=== PATIENT | male | born 1970 | race Caucasian/White ===

== ENCOUNTER 2024-05-14 13:05 | Outpatient (CLI) | payer BC, SELFPAY ==
--- NOTE | 2024-05-14 13:10 | US_ITS ---
FINAL REPORT CLINICAL HISTORY: CLAUDICATION,REST PAIN,DM,HLD,HTN FINDINGS: LOWER EXTREMITY SEGMENTAL PRESSURE MEASUREMENTS Pressure indices are as follows: RIGHT LOWER EXTREMITY: Lower thigh: 1.1 Calf: 1.0 Ankle, posterior tibial artery: 1.0 Ankle, dorsalis pedis: 1.0 Toe: 0.66 Comments: DANIEL is 1.0. LEFT LOWER EXTREMITY: Lower thigh: 0.91 Calf: 1.1 Ankle, posterior tibial artery: 1.0 Ankle, dorsalis pedis: 1.0 Toe: 0.52 Comments: DANIEL is 1.0 Reviewed, Interpreted and Dictated by Jordan Gentile MD Transcribed by Radha Lomas Authenticated and [facility]
== END 2024-05-14 23:59 | disposition home or self-care (01) ==
LOC: RT 13:06
PROVIDERS: PCP Registered Nurse; Visit Provider Registered Nurse
DX: R60.0 Localized edema (principal)
CPT/HCPCS: 93923

== ENCOUNTER 2024-08-01 15:06 | Outpatient (CLI) | payer BC, SELFPAY ==
--- NOTE | 2024-08-01 15:10 | CT_ITS ---
FINAL REPORT TECHNIQUE: Axial images of the chest was performed with and without contrast. Reformatted images were obtained and reviewed. This study was performed with techniques to keep radiation doses as low as reasonably achievable, (ALARA). Individualized dose reduction techniques using automated exposure control or adjustment of mA and/or kV according to the patient's size were employed. CLINICAL HISTORY: DYSPNEA FINDINGS: There is a opacified tubular structure in the right lower lobe. This is well-seen on coronal images 54-55 of series 601. This measures 31 x 15 mm. This could represent a dilated obstructed bronchus or less likely pulmonary nodule. There is partial right middle lobe collapse. There is a 3 mm left upper lobe nodule posteriorly on image 33 of series 2. Right hilar adenopathy is present with largest node measuring up to 22 mm. Limited images of the upper abdomen are unremarkable. IMPRESSION: Tubular structure in the right lower lobe which may represent an obstructed bronchus or bronchial atresia involving a segmental right lower lobe bronchus, pulmonary nodule is less likely. Right middle lobe partial collapse. Bronchoscopic evaluation should be considered. Reviewed, Interpreted and Dictated by Jordan Gentile MD Transcribed by Radha Lomas Authenticated and [facility]
[2024-08-01 15:44] LABS: Blood Urea Nitrogen 16 mg/dl (9-20); Estimated Glomerular Filt Rate 70 ml/min (>60); GFR (African American) 85 ML/MIN (>60)
[2024-08-01] MEDS: SODIUM CHLORIDE 0.9% 10ML SYR (RAD ONLY) 10 ML IV (16:15)
[2024-08-01] MEDS: IOPAMIDOL-370 (76%);100ML BOTTLE 75 ML IV (16:16)
== END 2024-08-01 23:59 | disposition home or self-care (01) ==
LOC: RAD 15:07
PROVIDERS: PCP Registered Nurse; Visit Provider Registered Nurse
DX: J98.11 Atelectasis (principal); R91.8 Other nonspecific abnormal finding of lung field
CPT/HCPCS: 36415; 71270; 82565; 84520; Q9967

== ENCOUNTER 2024-08-19 10:06 | Outpatient (CLI) | payer BC, SELFPAY ==
--- OUTSIDE RECORDS SUMMARY | 2024-07-03 07:30 | XMS_ITS ---
Author Organization [facility], [place], operated by [facility] Address [address] [place] [address] Care Team Providers Care Supervisor Grading Name Role Phone Martha Bermeo Primary Care Provider Jimmy RODRIGUEZ-Magnetic Prospecting Operator, Tarik Unavailable REASON FOR VISIT MAT Individual Counseling, Face to face encounter Medications Medication SIG (Take, Route, Frequency, Duration) Notes Start Date End Date Status Potassium 99 MG 1 tablet Orally Once a day for 30 days Active Mounjaro 5 MG/0.5ML inject 5 mg Subcutan eous once weekly for 28 days Active Lisinopril-hydroCHLOROthia zide 20-12.5 MG 1 tablet Orally Once a day for 90 days Active Ibuprofen 800 MG 1 tablet with food o r milk as needed Orally every 12 hrs for 30 days Active OXcarbazepine 150 MG 1 tablet Orally Twi ce a day for 30 days 06/05/2024 07/05/2024 Active Buprenorphine HCl-Naloxone HCl 8-2 MG 2 tablets under the tongue and allow to dissolve Sublingual Once a day for 28 days 06/05/2024 Active Encounters Encounter Location Date Provider Diagnosis [facility] [address] [facility] [address] [place] [id number] 07/03/2024 Tarik Marquez LPC-Magnetic Prospecting Operator Opioid dependence F11.20 Assessments Encounter Date Diagnosis (ICD Code) Assessment Notes Treatment Notes Treatment Clinical Notes Section Notes 07/03/2024 Opioid dependence (ICD-10 - F11.20) Gama will continue to participate in [facility] MAT program for ongoing support and maintenance in his recovery. Therapist and Gama will work collaboratively to explore and address any emerging maladaptive thoughts or behaviors related to substance use and adjustment to recent life changes, including his medical diagnosis and inability to work. Therapist will continue to provide education, encouragement, and therapeutic support, with a focus on reinforcing healthy coping strategies, maintaining recovery stability, and promoting emotional resilience during this period of health-related transition. In today's therapy session, Gama shared he experienced health issues in January, which led to medical testing and a diagnosis of black lung. His doctor has taken him off work, which has been emotionally challenging given his strong work history and identity tied to employment. Despite this, Gama reported he is doing well in his recovery. Therapist helped Gama identify and challenge negative automatic thoughts related to self-worth and productivity, emphasizing recovery and health management are forms of meaningful work. Cognitive restructuring was used to reframe his current situation from a setback to an opportunity for healing and self-care. Therapist and Gama discussed developing a new routine that supports both Gama's physical health and emotional well-being, including scheduling pleasant activities and setting achievable goals outside of work. Gama was encouraged to acknowledge his resilience and to continue focusing on the progress he's made in recovery, recognizing that staying well is now a central part of his purpose. Plan Of Treatment Treatment Notes Assessment Notes Opioid dependence Gama will continue to participate in [facility] MAT program for ongoing support and maintenance in his recovery. Therapist and Gama will work collaboratively to explore and address any emerging maladaptive thoughts or behaviors related to substance use and adjustment to recent life changes, including his medical diagnosis and inability to work. Therapist will continue to provide education, encouragement, and therapeutic support, with a focus on reinforcing healthy coping strategies, maintaining recovery stability, and promoting emotional resilience during this period of health-related transition. Next Appt Details Follow Up: 3 Months, Reason: Provider Name:Inessa Ruiz, 08/29/2024 11:30:00 AM, [address] [place] [address] [place], [id number], Provider Name:Tarik Marquez LPC-Magnetic Prospecting Operator, 09/26/2024 11:30:00 AM, [address] [place] [address] [place], [id number], Provider Name:Martha Bermeo , 09/26/2024 11:30:00 AM, [address] [facility] [place], [phone], Progress Notes * Miky BOGGSOB:1969 (54 yo M)Acc No.[id number]:07/03/2024 MAT-Individual Patient: Gama MILES Provider: Analisa Marquez LPC :1970 A ge:54 Y S ex:Male Date:07/03/2024 Address:[place] [address], [place], [id number] Pcp:Martha Bermeo Subjective: * Chief Complaints: * 1 . MAT Individual Counseling. 2. Face to face encounter. * HPI: I ndividual Counseling: Start Time: 11:36 am End Time: 12:15 pm Patient stated, I was having issues in January with dizziness and some other symptoms. My family doctor sent me for testing, and I found out I have black lung. She took me off work. It's been difficult not working, but I'm doing well with my recovery. . * Medical History: * Medications: T aking Buprenorphine HCl-Naloxone HCl 8-2 MG Tablet Sublingual 2 tablets under the tongue and allow to dissolve Sublingual Once a day , Taking Ibuprofen 800 MG Tablet 1 tablet with food or milk as needed Orally every 12 hrs , Taking Lisinopril-hydroCHLOROthiazide 20-12.5 MG Tablet 1 tablet Orally Once a day , Taking Mounjaro(Tirzepatide) 5 MG/0.5ML Solution Pen-injector inject 5 mg Subcutaneous once weekly , Taking OXcarbazepine 150 MG Tablet 1 tablet Orally Twice a day , stop date 07/05/2024, Taking Potassium 99 MG Tablet 1 tablet Orally Once a day Objective: * Vitals: * Examination: I ndividual Counseling: O (objective) P resents alone. Appearance C lean & lawyer probate, Casually Dressed, Good Hygiene, appropriate for weather/situation. Manner and/or Approach C ooperative. Speech N ormal/Appropriate. Orientation O riented x4. Mood P leasant, Appropriate to situation. Thought Process W ithin normal limits, Organized and coherent. Suicidal/Homicidal Ideation S I: not voiced/noted on this day, HI: not voiced/noted on this day. Affect c ongruent with stated mood. Grooming w ell groomed. Comprehension i ntact. Language i ntact. Eye Contact g ood. Aphasia N one noted. Suicidal Ideations d enies. Insight g ood. Judgement g ood. Recall g ood. Assessment: * Assessment: 1. O pioid dependence - F11.20 (Primary) In today's therapy session, Gama shared he experienced health issues in January, which led to medical testing and a diagnosis of black lung. His doctor has taken him off work, which has been emotionally challenging given his strong work history and identity tied to employment. Despite this, Gama reported he is doing well in his recovery. Therapist helped Gama identify and challenge negative automatic thoughts related to self-worth and productivity, emphasizing recovery and health management are forms of meaningful work. Cognitive restructuring was used to reframe his current situation from a setback to an opportunity for healing and self-care. Therapist and Gama discussed developing a new routine that supports both Gama's physical health and emotional well-being, including scheduling pleasant activities and setting achievable goals outside of work. Gama was encouraged to acknowledge his resilience and to continue focusing on the progress he's made in recovery, recognizing that staying well is now a central part of his purpose. Plan: * Treatment: * Procedure Codes: 9 0832 PSYTX PT&/FAMILY 30 MINUTES * Follow Up: 3 Months * Billing Information: * Visit Code: * Procedure Codes: 23315 PSYTX PT&/FAMILY 30 MINUTES. * Sign off status: Completed true * Provider: Analisa Marquez FLEXIBLE NANNY Date: 07/03/2024 Generated for Hanny sow/Liseth/Michelaitting on: 08/19/2024 10:09 AM EDT History and Physical Notes * Examination Category Sub-Category Detail Notes Category Not es Individual Counseling O (objective) Presents alone Appearance Clean & lawyer probate, Donavon ually Dressed, Good Hygiene, appropriate for weather/situation Manner and/or Approach Cooperative Speech Normal/Appropriate Orientation Oriented x4 Mood Pleasant, Appropriat e to situation Thought Process Within normal limits , Organized and coherent Suicidal/Homicidal Ideation SI: not voic ed/noted on this day, HI: not voiced/noted on this day Affect congruent with state d mood Grooming well groomed Comprehension intact Language intact Eye Contact good Aphasia None noted Suicidal Ideations denies Insight good Judgement good Recall good
--- OUTSIDE RECORDS SUMMARY | 2024-07-03 08:15 | XMS_ITS ---
Author Organization [facility] Address [address] [place] [address] Care Team Providers Care Landscape Manager Name Role Phone BermeoMartha Primary Care Provider [phone] Inessa Ruiz Unavailable [phone] Allergies No Known Allergies Results Component Value Reference Range Notes [facility] ( Not yet reviewed by provider) Interpretation: Performing Lab: Notes/Report: A-HYDROXYALPRAZOLAM NEGATIVE ACETYL FENTANYL NEGATIVE AMPHETAMINE NEGATIVE CODEINE NEGATIVE DEXTROMETHORPHAN POSITIVE GABAPENTIN NEGATIVE N-DESMETHYLTAPENTADOL NEGATIVE OXYCODONE NEGATIVE TAPENTADOL NEGATIVE TEMAZEPAM NEGATIVE PHENOBARBITAL NEGATIVE 6-MONOACETYLMORPHINE NEGATIVE 7-AMINOCLONAZEPAM NEGATIVE METHYLPHENIDATE NEGATIVE MORPHINE NEGATIVE NALOXONE POSITIVE NALTREXONE NEGATIVE NORBUPRENORPHINE POSITIVE NORDIAZEPAM NEGATIVE NORMEPERIDINE NEGATIVE OXAZEPAM NEGATIVE OXYMORPHONE NEGATIVE XYLAZINE NEGATIVE PHENTERMINE POSITIVE PREGABALIN NEGATIVE SUFENTANIL NEGATIVE THC-COOH NEGATIVE TRAMADOL NEGATIVE AMOBARBITAL NEGATIVE BUTALBITAL NEGATIVE SECOBARBITAL NEGATIVE ALPRAZOLAM NEGATIVE BENZOYLECGONINE NEGATIVE BUPRENORPHINE POSITIVE DIHYDROCODEINE NEGATIVE EDDP NEGATIVE FENTANYL NEGATIVE FLUNITRAZEPAM NEGATIVE HYDROCODONE NEGATIVE HYDROMORPHONE NEGATIVE LAMOTRIGINE NEGATIVE LORAZEPAM NEGATIVE MEPERIDINE NEGATIVE METHADONE NEGATIVE METHAMPHETAMINE NEGATIVE ETG POSITIVE ETS POSITIVE OXIDANTS DEFAULT PH NORMAL URINE CREATININE FALSE URINE SP. GRAVITY NORMAL NORFENTANYL NEGATIVE CLONAZEPAM NEGATIVE DIAZEPAM NEGATIVE REASON FOR VISIT MAT 1 month f/u substance abuse disorder., also follows for depression which is variable Medications Medication SIG (Take, Route, Frequency, Duration) Notes Start Date End Date Status Lisinopril-hydroCHLOROth iazide 20-12.5 MG 1 tablet Orally Once a day for 90 days Active Ibuprofen 800 MG 1 tablet with food o r milk as needed Orally every 12 hrs for 30 days Active Buprenorphine HCl-Naloxone HCl 8-2 MG 2 tablets under the tongue and allow to dissolve Sublingual Once a day for 28 days 07/03/2024 Active Potassium 99 MG 1 tablet Orally Once a day for 30 days Not-Taking OXcarbazepine 150 MG 1 tablet Orally Twi ce a day for 30 days 06/05/2024 07/05/2024 Active Mounjaro 5 MG/0.5ML inject 5 mg Subcutaneous once weekly for 28 days Active Social History Tobacco Use: Social History Observation Description Date Details (start date - stop date) Unknown Sexual History Question Answer Notes Had sex in the past 12 months (vaginal, oral, or anal)? Yes Have you ever had a Sexually transmitted disease ? No PRAPARE Question Answer Notes Date Completed/Updated: 07/03/2024 What is your current housing situation? I have h ousing Are you worried about losing your housing? No What is the highest level of school that you have finished? 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 Check all that apply I do not have problems meeting my needs Has lack of transportation k ept you from medical appointments, meetings, work or from getting things needed for daily living? No How often do you see or talk to people that you care about and feel close to? (For example: talking to friends on the phone, visiting friends or family, going to buddhist or club meetings) 3 to 5 times a week How stressed are you? Stress is when someone feels tense, nervous, anxious, or cant sleep at night because their mind is troubled Not at all In the past year have you sp ent more than 2 nights in a row in a correction, long term, mcfp center, or juvenile correctional facility? No Are you a refugee? No What country are you from? [place] Do you feel physically and e motionally safe where you currently live? Yes In the past year, have you b een afraid of your partner or ex-partner? No PRAPARE Score: 3 OPIOID Risk Tool (2018 Edition) Question Answer Notes Family Hx Alcohol? No Family Hx Illegal Drugs? No Family Hx Rx Drugs? No Personal Hx Alcohol? No Personal Hx Illegal Drugs? Yes Personal Hx Rx Drugs? Yes Age between 16-45 years? No History of Preadolescent Sexual Abuse? No ADD, OCD, Bipolar, Schizophrenia? No Depression? No TOTAL SCORE 9 Risk Level for Opioid Use high SBIRT (2018 Edition) Question Answer Notes Patient refused/declined SBIRT screening at this time? No 1. How often do you have a drink containing alco hol? Never 3. How often do you have five or more drinks on one occasion? Never SCORE 0 Interpretation Negative How many times in the past y ear have you used an illegal drug or used a prescription medication for non-medical reasons? 0 Total Count 0 Interpretation Negative AUDIT-C (Standard) Question Answer Notes Did you have a drink containing alcohol in the p ast year? No Points 0 Interpretation Negative Tobacco Control (Standard) Question Answer Notes Tobacco use: Uses tobacco in other forms Additional Findings: Tobacco user Chews tobacco Problems Problem Type SNOMED Code ICD Code Onset Dates Problem Status W/U Status Risk Notes Problem 350399720 BMI 39.0-39.9,adult (Z68.39) Active confirmed Problem 64869107 Severe episode of recurrent major depressive disorder, without psychotic features (F33.2) Active confirmed Problem Tobacco dependence due to chewing tobacco (F17.220) Active confirmed Vital Signs Temperature 98.0 degrees Fahrenheit 07/04/19 25 Blood pressure systolic 126 mm Hg 07/04/19 25 Blood pressure diastolic 75 mm Hg 025 Heart Rate 65 /min 07/03/2024 Respiratory Rate 18 /min 07/03/2024 Height 74 in 07/03/2024 Weight 303.8 lbs 07/03/2024 BMI 39 kg/m2 07/03/2024 Oximetry 98 % 07/03/2024 Weight-kg 137.8 kg 07/03/2024 Encounters Encounter Location Date Provider Diagnosis [address] [place] [address] 07/03/2024 Inessa Ruiz Opioid dependence F11.20 ; Severe episode of recurrent major depressive disorder, without psychotic features F33.2 ; Tobacco dependence due to chewing tobacco F17.220 ; Tobacco abuse counseling Z71.6 and BMI 39.0-39.9,adult Z68.39 Assessments Encounter Date Diagnosis (ICD Code) Assessment Notes Treatment Notes Treatment Clinical Notes Section Notes 07/03/2024 Opioid dependence (ICD-10 - F11.20) Patient to use the buprenorphine product only as prescribed. Essential to treatment is counseling and psychosocial support. Appropriate use and shortage of the medication was reviewed. The patient is not to change how the medication is used withoout first consulting the physician. The patient is not to share the prescribed medication with anyone. Association is essential. Who you allow to influence you will determine the success of your sobriety. Continue board of pharmacy and drug screens. See drug screen under procedures for results on instant days. Patient reminded benzos must be out of system to remain in the program. Continue medication as prescribed and report any adverse side effects immediately. Patient also to continue individual and group counseling. Suboxone 8/2mg film #56 ii sl 1xqd. Rx escribed to [facility] Patient scheduled to see Mellisa Guaman 07/03 with next appt scheduled 08/01/24 07/03/2024 Severe episode of recurrent major depressive disorder, without psychotic features (ICD-10 - F33.2) Explained that depression is a medical illness that needs to be treated. Discussed additional of exercise to daily routine as well as discussed benefits of counseling as well. Will make appropriate referral to social staff worker if pt agrees. 07/03/2024 Tobacco dependence due to chewing tobacco (ICD-10 - F17.220) Counseled for 15 minutes. Advised tobacco cessation. Discussed health risk of continued tobacco use. Discussed barriers to cessation and strategies to overcome these barriers. Discussed 1800QuitNow program and handout (including phone number) provided to pt. Patient is not ready to quit. 07/03/2024 Tobacco abuse counseling (ICD-10 - Z71.6) Counseled for 5 minutes. Advised tobacco cessation. Discussed health risk of continued tobacco use. Discussed barriers to cessation and strategies to overcome these barriers. Discussed 1800QuitNow program and handout (including phone number) provided to pt. Patient is not ready to quit. 07/03/2024 BMI 39.0-39.9,adult (ICD-10 - Z68.39) Should exercise 20-30min 4-5 days/week, may begin with walking, increase as tolerated. If able, at least 2 days/week of resistance exercises. Suggestions provided for local exercise opportunities. Recommended elimination of sugar sweetened beverages from diet and increase amt of fruits and vegetables consumed daily; 5 servings daily each. Advised to limit calories to 9081-8471/day. Will reevaluate weight each visit. 07/03/2024 Other Patient informe d that [facility] has oncall providers available 02/10 by dialing regular clinic number. Also informed patient to sign up for the patient portal and explained process and advantages of using the portal including communication with provider, refill requests, review labs, etc. Pt also reminded to bring all medications to each visit. Plan Of Treatment Medication Medication Name Sig Start Date Stop Date Notes Buprenorphine HCl-Naloxone H Cl 8-2 MG 2 tablets under the tongue and allow to dissolve Sublingual Once a day for 28 days 07/03/2024 Treatment Notes Assessment Notes Opioid dependence Patient to use the b uprenorphine product only as prescribed. Essential to treatment is counseling and psychosocial support. Appropriate use and shortage of the medication was reviewed. The patient is not to change how the medication is used withoout first consulting the physician. The patient is not to share the prescribed medication with anyone. Association is essential. Who you allow to influence you will determine the success of your sobriety. Continue board of pharmacy and drug screens. See drug screen under procedures for results on instant days. Patient reminded benzos must be out of system to remain in the program. Continue medication as prescribed and report any adverse side effects immediately. Patient also to continue individual and group counseling. Severe episode of recurrent major depressive disorder, without psychotic features Explained that depression is a medical illness that needs to be treated. Discussed additional of exercise to daily routine as well as discussed benefits of counseling as well. Will make appropriate referral to social staff worker if pt agrees. Tobacco dependence due to chewing tobacc o Counseled for 15 minutes. Advised tobacco cessation. Discussed health risk of continued tobacco use. Discussed barriers to cessation and strategies to overcome these barriers. Discussed 1800QuitNow program and handout (including phone number) provided to pt. Patient is not ready to quit. Tobacco abuse counseling Counseled for 5 minutes. Advised tobacco cessation. Discussed health risk of continued tobacco use. Discussed barriers to cessation and strategies to overcome these barriers. Discussed 1800QuitNow program and handout (including phone number) provided to pt. Patient is not ready to quit. BMI 39.0-39.9,adult Should exercise 20-3 0min 4-5 days/week, may begin with walking, increase as tolerated. If able, at least 2 days/week of resistance exercises. Suggestions provided for local exercise opportunities. Recommended elimination of sugar sweetened beverages from diet and increase amt of fruits and vegetables consumed daily; 5 servings daily each. Advised to limit calories to 6159-7020/day. Will reevaluate weight each visit. Other Patient informed h[facility] has oncall providers available 02/10 by dialing regular clinic number. Also informed patient to sign up for the patient portal and explained process and advantages of using the portal including communication with provider, refill requests, review labs, etc. Pt also reminded to bring all medications to each visit. Pending Test Test Name Order Date [facility] 07/03/2024 Next Appt Details Follow Up: 4 Weeks, Reason: Provider Name:Inessa Ruiz, 08/29/2024 11:30:00 AM, [address] [place] [address], [place], [address], Provider Name:Tarik Marquez [facility]-Hall Director, 09/26/2024 11:30:00 AM, [address] [place] [address], [place], [address], Provider Name:Martha Bermeo , 09/26/2024 11:30:00 AM, [address] [place] [address], [place], [address], Progress Notes * Miky BOGGSOB:1969 (54 yo M)Acc No.[id number]:07/03/2024 Tosin Follow up Patient: Merlyn Gama DIGGS Provider: Merlyn Ruiz APRN-COLLECTIONS REPRESENTATIVE :1970 A ge:54 Y S ex:Male Date:07/03/2024 Address:[address] [address], [place], [id number] Pcp:Martha Bermeo Subjective: * Chief Complaints: * 1 . MAT 1 month f/u substance abuse disorder.. 2. Also follows for depression which is variable. * HPI: A nxiety Screening: LAUREEN-7 (2018 Edition) F eeling nervous, anxious, or on edge: Not at all , Not being able to stop or control worrying: Not at all, Worrying too much about different things: Not at all, Trouble relaxing: Not at all, Being so restless that it is hard to sit still: Not at all, Becoming easily annoyed or irritable: Not at all, Feeling afraid as if something awful might happen: Not at all, Total LAUREEN-7 Score: 0, If you checked any problems, how difficult have they made it for you to do your work, take care of things at home, or get along with other people?: Not difficult at all, Interpretation of Total: (0 to 4) No Anxiety. H istory of Presenting Problem: Substance abuse f or . ... p rescription pain medications. Suicidal ideation h as a history of substance abuse but not suicidal. P rogress Note: Medication compliance C ompliant since 2011. Patient education Y es. Suicidal concern N o. Motivation P atient wants better relationship with family, Patient wants to maintain job. Withdrawal symptoms N o. Side Effects d enies. Current Cravings d enies. S ubstance Abuse: Detox symptoms present today N o. Past alcohol and/or drug abuse history Y es. Motivation for treatment n substance abuse treatment. Past treatment history? Y es. Efficacy of past treatment C ompliant. Treatment Compliance Y es. S ubstance Abuse: Counseling c urrently seeing a counselor, helpful. Treatments n one. Anhedonia n one. Appetite change n one. Concentration n ormal. Energy level n ormal energy. Hallucinations n one. Supports s upport from family, support from friends, counseling, helpful. Weight change n one. Drug use r ecovering addict. D epression Screening: PHQ-9 L ittle interest or pleasure in doing things?Nearly every day F eeling down, depressed, or hopeless N early every day T rouble falling or staying asleep, or sleeping too much N early every day F eeling tired or having little energy N early every day P oor appetite or overeating N early every day F eeling bad about yourself or that you are a failure, or have let yourself or your family down N early every day T rouble concentrating on things, such as reading the newspaper or watching television N early every day M oving or speaking so slowly that other people could have noticed; or the opposite, being so fidgety or restless that you have been moving around a lot more than usual N early every day T houghts that you would be better off or of hurting yourself in some way N ot at all T otal Score 2 4 I nterpretation S evere Depression Intervention D epression Screening Findings N egative F ollow-Up for Depression P atient follow-up to return when and if necessary S uicide Risk Assessment Performed 0 07/03/2024 F amily Planning: Contraception Method P rimary Method: f emale method F emale sterilization? Y es Reproductive Life Plan 1 . Do you have any children now? Y es 2 . Do you want to have (more) children? N o 3 . When would you like to have (more) children? n o plans for future 4 . Are you or your partner using any form of control? Y es D o you intend on becoming within the next year? n o, I don\t intend to become * ROS: G eneral/Constitutional: Denies C hange in appetite. D enies C hills. A dmits F atigue. D enies F ever. D enies H eadache. D enies L ightheadedness. D enies S leep disturbance. D enies W eight gain. A dmits W eight loss.? P sychiatric: Admits A nxiety. D enies A uditory/visual hallucinations. D enies D elusions. A dmits D epressed mood, a dmits, which is moderate.?Admits D ifficulty sleeping. D enies E ating disorder. D enies L oss of appetite. D enies M ental or Physical abuse. A dmits S tressors. A dmits S ubstance abuse. * Medical History: H ypertension, Opiod Dependency. * Surgical History: L eft ACL repair 2001. * Hospitalization/Major Diagno stic Procedure: D enies Past Hospitalization. * Family History: F ather: 31 yrs. M other: alive 63 yrs, diagnosed with Unspecified essential hypertension. 1 son(s) . . * Social History: T obacco Use: T obacco Control (Standard) T obacco use: U ses tobacco in other forms A dditional Findings: Tobacco user C hews tobacco S ocial Determinants: Neris Hauser ate Completed/Updated: 0 07/03/2024 W hat is your current housing situation? I have housing A re you worried about losing your housing??No W hat is the highest level of school that you have finished? L ess than a high school degree W hat is your current work situation? 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 Check all that apply I do not have problems meeting my needs H as lack of transportation kept you from medical appointments, meetings, work or from getting things needed for daily living? N o H ow often do you see or talk to people that you care about and feel close to? (For example: talking to friends on the phone, visiting friends or family, going to buddhist or club meetings) 3 to 5 times a week H ow stressed are you? Stress is when someone feels tense, nervous, anxious, or cant sleep at night because their mind is troubled N ot at all I n the past year have you spent more than 2 nights in a row in a correction, long term, mcfp center, or juvenile correctional facility? N o A re you a refugee? N o W hat [place] are you from[place] D o you feel physically and emotionally safe where you currently live? Y es I n the past year, have you been afraid of your partner or ex-partner? N o P TAMIR Score: 3 S exual History: S exual History H ad sex in the past 12 months (vaginal, oral, or anal)? Y es H ave you ever had a Sexually transmitted disease? N o D rugs/Alcohol: O PIOID Risk Tool (2018 Edition) F amily Hx Alcohol? N o F amily Hx Illegal Drugs? N o F amily Hx Rx Drugs? N o P ersonal Hx Alcohol? N o P ersonal Hx Illegal Drugs? Y es P ersonal Hx Rx Drugs? Y es A ge between 16-45 years? N o H istory of Preadolescent Sexual Abuse? N o A DD, OCD, Bipolar, Schizophrenia? N o D epression? N o T OTAL SCORE 9 R isk Level for Opioid Use h igh SBIRT (2018 Edition) P atient refused/declined SBIRT screening at this time? N o 1 . How often do you have a drink containing alcohol? N ever 3 . How often do you have five or more drinks on one occasion? N ever S CORE 0 I nterpretation N egative H ow many times in the past year have you used an illegal drug or used a prescription medication for non-medical reasons? 0 T otal Count 0 I nterpretation N egative M iscellaneous: H ome smoke detector use: smoke detectors. 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 N o P oints 0 I nterpretation N egative * Medications: T aking Buprenorphine HCl-Naloxone HCl [...] Twice a day , stop date 07/05/2024, Not-Taking Potassium 99 MG Tablet 1 tablet Orally Once a day , Medication List reviewed and reconciled with the patient * Allergies: N .K.D.A. Objective: * Vitals: T emp:98.0F, HR:65/min, BP:126/75mm Hg, Ht: 74 in, Wt:303.8lbs, BMI:39Index, RR:18/min, Oxygen sat %:98%, Wt-k.8 kg. * Examination: G eneral Examination: GENERAL APPEARANCE: A &O x 4, Friendly, talkative male?. PSYCH: a lert, oriented, cooperative with exam, judgement and insight good, no auditory or visual hallucinations, speech clear, thought content without suicidal ideation, delusions . Assessment: * Assessment: 1. S evere episode of recurrent major depressive disorder, without psychotic features - F33.2? 2. O pioid dependence - F11.20 (Primary) 3 . T obacco dependence due to chewing tobacco - F17.220 4 . T obacco abuse counseling - Z71.6 5 . B MO 39.0-39.9,adult - Z68.39 Plan: * Treatment: 2. S evere episode of recurrent major depressive disorder, without psychotic features Notes: Explained that depression is a medical illness that needs to be treated. Discussed additional of exercise to daily routine as well as discussed benefits of counseling as well. Will make appropriate referral to social staff worker if pt agrees. 3. T obacco dependence due to chewing tobacco Notes: Counseled for 15 minutes. Advised tobacco cessation. Discussed health risk of continued tobacco use. Discussed barriers to cessation and strategies to overcome these barriers. Discussed 1800QuitNow program and handout (including phone number) provided to pt. Patient is not ready to quit.? 4. T obacco abuse counseling Notes: Counseled for 5 minutes. Advised tobacco cessation. Discussed health risk of continued tobacco use. Discussed barriers to cessation and strategies to overcome these barriers. Discussed 1800QuitNow program and handout (including phone number) provided to pt. Patient is not ready to quit. 5. B MO 39.0-39.9,adult Notes: Should exercise 20-30min 4-5 days/week, may begin with walking, increase as tolerated. If able, at least 2 days/week of resistance exercises. Suggestions provided for local exercise opportunities. Recommended elimination of sugar sweetened beverages from diet and increase amt of fruits and vegetables consumed daily; 5 servings daily each. Advised to limit calories to 4955-2934/day. Will reevaluate weight each visit. 6. O thers Notes: Patient informed that [facility] has oncall providers available 02/10 by dialing regular clinic number. Also informed patient to sign up for the patient portal and explained process and advantages of using the portal including communication with provider, refill requests, review labs, etc. Pt also reminded to bring all medications to each visit. * Preventive Medicine: oral: A re you having dental pain or issues? Are you having dental pain or issues??No D o you have a dental provider? Do you have a dental provider? Y es MEN'S YOUR PREVENTIVE WELLNESS PLAN: B MO, Height, and Weight: My BMI, height, and weight were taken on: 0 07/03/2024 B lood Pressure: My blood pressure was last taken on:?07/03/2024 D epression Screening: Screening for depression was last done on: 0 07/03/2024 Counseling: B MO Management BMI management provided Y es Healthy food choices, Avoid Sugary Snacks Above Normal BMI Follow-up W eight monitoring at each visit B P Management: LIFESTYLE RECOMMENDATION: L jeannie education regarding hypertension Screenings: F ALL RISK SCREENING Fall Risk Assessment: N o falls in the past year D EPRESSION SCREENING: Date of most recent screenin 07/03/2024 * Follow Up: 4 Weeks Care Plan: * Problems: * Billing Information: * Visit Code: 02386 Office Visit, Est Pt., Level 3. * Procedure Codes: * Sign off status: Completed true * Provider: BLANCA Nelson Date: 07/03/2024 Generated for Hanny sow/Liseth/Chandni on: 0 08/19/2024 10:09 AM EDT History and Physical Notes * HPI (History of Present Illness) Category Sub-Category Detail Notes Category Not es Substance Abuse Appetite change none Medications Counseling currently seeing a [facility], helpful Supports support from family, support from friends, counseling, helpful Energy level normal energy Weight change none Concentration normal Anhedonia none Hallucinations none ETOH use Drug use recovering addict Treatments none History of Presenting Problem Substance abuse prescrip tion pain medications Suicidal ideation has a history of sub stance abuse but not suicidal Bipolar Disorder Substance Abuse Detox symptoms present today No Past alcohol and/or drug abuse history Y es Alcohol Caffeine Motivation for treatment n substance abu se treatment Past treatment history? Yes Efficacy of past treatment Compliant Treatment Compliance Yes Progress Note Suicidal concern No Medication compliance Compliant since 28 02 Patient education Yes Timestamp Recommended treatment: Motivation Patient wants better relationship with family, Patient wants to maintain job Withdrawal symptoms No Side Effects denies Current Cravings denies Family Planning Contraception Method Primary Method:: fema le method Female sterilization?: Yes Reproductive Life Plan 1. Do you have any childr en now?: Yes 2. Do you want to have (more) children?: No 3. When would you like to have (more) ch ildren?: no plans for future 4. Are you or your partner using any for m of control?: Yes Do you intend on becoming pr egnant within the next year?: no, I don\t intend to become Depression Screening PHQ-9 Little inte rest or pleasure in doing things: Nearly every day Feeling down, depressed, or hopeless: Ne juan every day Trouble falling or staying asleep, or sl eeping too much: Nearly every day Feeling tired or having little energy: N early every day Poor appetite or overeating: Nearly ever y day Feeling bad about yourself o r that you are a failure, or have let yourself or your family down: Nearly every day Trouble concentrating on thi ngs, such as reading the newspaper or watching television: Nearly every day Moving or speaking so slowly that other people could have noticed; or the opposite, being so fidgety or restless that you have been moving around a lot more than usual: Nearly every day Thoughts that you would be b ada off or of hurting yourself in some way: Not at all Total Score: 24 Interpretation: Severe Depression Intervention Depression Screening Findings: N egative Follow-Up for Depression: Patient follow -up to return when and if necessary Suicide Risk Assessment Performed: 07/03 Anxiety Screening LAUREEN-7 (2018 Edition) Feeling n ervous, anxious, or on edge: Not at all, Not being able to stop or control worrying: Not at all, Worrying too much about different things: Not at all, Trouble relaxing: Not at all, Being so restless that it is hard to sit still: Not at all, Becoming easily annoyed or irritable: Not at all, Feeling afraid as if something awful might happen: Not at all, Total LAUREEN-7 Score: 0, If you checked any problems, how difficult have they made it for you to do your work, take care of things at home, or get along with other people?: Not difficult at all, Interpretation of Total: (0 to 4) No Anxiety Examination Category Sub-Category Detail Notes Category Not es General Examination GENERAL APPEARANCE: A&O x 4, Friendly, talkative male PSYCH: alert, oriented, 

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
--- OUTSIDE RECORDS SUMMARY | 2024-08-19 10:11 | XMS_ITS | Patient Health Record ---
Author Organization [facility] Address [address] [place] [address] Care Team Providers Care Stadium Attendant Name Role Phone Jean-Claude Martha Primary Care Provider Jimmy [facility]-Arboriculturist, Tarik Unavailable JosephCelsa hudsona Unavailable [phone] Contos, Elan Unavailable [phone] Allergies No Known Allergies Results Component Value Reference Range Notes [facility]-Low Risk ( Not yet reviewed by provider) [...] NORMAL NORFENTANYL NEGATIVE CLONAZEPAM NEGATIVE DIAZEPAM NEGATIVE [facility] ( Not yet reviewed by provider) [...] NEGATIVE A-HYDROXYALPRAZOLAM NEGATIVE ALPRAZOLAM NEGATIVE AMPHETAMINE NEGATIVE [facility] Reviewed date:11/27/2023 05:40:24 PM Interpretation:Abnormal Performing Lab: Notes/Report: ACETYL FENTANYL NEGATIVE PH NORMAL URINE SP. GRAVITY NORMAL OXIDANTS DEFAULT URINE CREATININE FALSE 7-AMINOCLONAZEPAM NEGATIVE 6-MONOACETYLMORPHINE NEGATIVE 7-AMINOFLUNITRAZEPAM NEGATIVE A-HYDROXYALPRAZOLAM NEGATIVE A-HYDROXYMIDAZOLAM NEGATIVE A-HYDROXYTRIAZOLAM NEGATIVE ALPRAZOLAM NEGATIVE AMPHETAMINE NEGATIVE BENZOYLECGONINE NEGATIVE BUPRENORPHINE POSITIVE CHLORDIAZEPOXIDE NEGATIVE CLONAZEPAM NEGATIVE CODEINE NEGATIVE DEXTROMETHORPHAN NEGATIVE DIAZEPAM NEGATIVE DIHYDROCODEINE NEGATIVE EDDP NEGATIVE FENTANYL NEGATIVE FLUNITRAZEPAM NEGATIVE GABAPENTIN NEGATIVE HYDROCODONE NEGATIVE HYDROMORPHONE NEGATIVE JWH 018 N-4-OH PENTYL NEGATIVE LAMOTRIGINE NEGATIVE LORAZEPAM NEGATIVE MEPERIDINE NEGATIVE METHADONE NEGATIVE METHAMPHETAMINE NEGATIVE METHYLPHENIDATE NEGATIVE MORPHINE NEGATIVE NALOXONE POSITIVE NALTREXONE NEGATIVE N-DESMETHYLTAPENTADOL NEGATIVE NORBUPRENORPHINE POSITIVE NORDIAZEPAM NEGATIVE NORFENTANYL NEGATIVE NORMEPERIDINE NEGATIVE OXAZEPAM NEGATIVE OXYCODONE NEGATIVE OXYMORPHONE NEGATIVE XYLAZINE NEGATIVE PHENTERMINE POSITIVE PREGABALIN NEGATIVE SUFENTANIL NEGATIVE TAPENTADOL NEGATIVE TEMAZEPAM NEGATIVE THC-COOH NEGATIVE TRAMADOL NEGATIVE AMOBARBITAL NEGATIVE BUTABARBITAL NEGATIVE BUTALBITAL NEGATIVE PHENOBARBITAL NEGATIVE SECOBARBITAL NEGATIVE ETG POSITIVE ETS POSITIVE Comp. Metabolic Panel (14) Reviewed date:11/17/2023 07:24:40 PM Interpretation: Performing Lab:[facility], [address] [facility], Phone - [phone], [facility] - [facility] Notes/Report: Glucose TNP Test not performed. Serum was in contact with cells when received which will make the result inaccurate. BUN 13 6-24 mg/dL Creatinine 1.02 0.76-1.27 mg/dL eGFR 88 >59 mL/min/1.73 BUN/Creatinine Ratio 13 9-20 Sodium 138 134-144 mmol/L Potassium TNP Test not performed. Serum was in contact with cells when received which will make the result inaccurate. Chloride 102 96-106 mmol/L Carbon Dioxide, Total 18 20-29 mmol/L Calcium 8.8 8.7-10.2 mg/dL Protein, Total 6.5 6.0-8.5 g/dL Albumin 3.9 3.8-4.9 g/dL Globulin, Total 2.6 1.5-4.5 g/dL Bilirubin, Total <0.2 0.0-1.2 mg/dL Alkaline Phosphatase 98 44-121 IU/L AST (SGOT) 32 0-40 IU/L ALT (SGPT) 30 0-44 IU/L CBC With Differential/Platel et Reviewed date:11/17/2023 07:27:03 PM Interpretation: Performing Lab:[facility] [place], [address], Phone - [phone], Director - [facility] Notes/Report: WBC 8.5 3.4-10.8 x10E3/uL RBC 4.80 4.14-5.80 x10E6/uL Hemoglobin 14.2 13.0-17.7 g/dL Hematocrit 43.3 37.5-51.0 % MCV 90 79-97 fL MCH 29.6 26.6-33.0 pg MCHC 32.8 31.5-35.7 g/dL RDW 15.3 11.6-15.4 % Platelets 210 150-450 x10E3/uL Neutrophils 50 Not Estab. % Lymphs 36 Not Estab. % Monocytes 9 Not Estab. % Eos 4 Not Estab. % Basos 1 Not Estab. % Neutrophils (Absolute) 4.2 1.4-7.0 x10E3/uL Lymphs (Absolute) 3.0 0.7-3.1 x10E3/uL Monocytes(Absolute) 0.8 0.1-0.9 x10E3/uL Eos (Absolute) 0.4 0.0-0.4 x10E3/uL Baso (Absolute) 0.1 0.0-0.2 x10E3/uL Immature Granulocytes 0 Not Estab. % Immature Grans (Abs) 0.0 0.0-0.1 x10E3/uL Hemoglobin A1c Reviewed date:11/19/2023 02:39:23 PM Interpretation:Abnormal Performing Lab:[facility] [place], [address] [facility], [place], Phone - [phone], Director - [place] Notes/Report: Hemoglobin A1c 6.5 4.8-5.6 % . Prediabetes: 5.7 - 6.4 Diabetes: >6.4 Glycemic control for adults with diabetes: <7.0 [facility] Reviewed date:08/11/2024 02:11:00 PM Interpretation: Performing Lab: Notes/Report: TRAMADOL NEGATIVE 6-MONOACETYLMORPHINE NEGATIVE 7-AMINOCLONAZEPAM NEGATIVE ETG NEGATIVE ETS NEGATIVE URINE CREATININE NORMAL ALPRAZOLAM NEGATIVE ACETYL [place] NEGATIVE A-HYDROXYALPRAZOLAM NEGATIVE OXIDANTS DEFAULT PH NORMAL URINE SP. GRAVITY NORMAL AMPHETAMINE NEGATIVE BENZOYLECGONINE NEGATIVE BUPRENORPHINE POSITIVE CLONAZEPAM NEGATIVE CODEINE NEGATIVE DEXTROMETHORPHAN NEGATIVE DIAZEPAM NEGATIVE DIHYDROCODEINE NEGATIVE EDDP NEGATIVE FENTANYL NEGATIVE FLUNITRAZEPAM NEGATIVE GABAPENTIN NEGATIVE HYDROCODONE NEGATIVE HYDROMORPHONE NEGATIVE LAMOTRIGINE NEGATIVE LORAZEPAM NEGATIVE MEPERIDINE NEGATIVE METHADONE NEGATIVE METHAMPHETAMINE NEGATIVE METHYLPHENIDATE NEGATIVE MORPHINE NEGATIVE NALOXONE POSITIVE NALTREXONE NEGATIVE N-DESMETHYLTAPENTADOL NEGATIVE NORBUPRENORPHINE POSITIVE NORDIAZEPAM NEGATIVE NORFENTANYL NEGATIVE NORMEPERIDINE NEGATIVE OXAZEPAM NEGATIVE OXYCODONE NEGATIVE OXYMORPHONE NEGATIVE XYLAZINE NEGATIVE PHENTERMINE POSITIVE PREGABALIN NEGATIVE SUFENTANIL NEGATIVE TAPENTADOL NEGATIVE TEMAZEPAM NEGATIVE THC-COOH NEGATIVE AMOBARBITAL NEGATIVE BUTALBITAL NEGATIVE PHENOBARBITAL NEGATIVE SECOBARBITAL NEGATIVE [facility] Reviewed date:08/30/2023 10:19:29 AM Interpretation:Abnormal Performing Lab: Notes/Report: OXIDANTS DEFAULT ETG POSITIVE ETS POSITIVE URINE SP. GRAVITY NORMAL PH NORMAL URINE CREATININE FALSE 6-MONOACETYLMORPHINE NEGATIVE 7-AMINOCLONAZEPAM NEGATIVE 7-AMINOFLUNITRAZEPAM NEGATIVE ACETYL [place] NEGATIVE A-HYDROXYALPRAZOLAM NEGATIVE A-HYDROXYMIDAZOLAM NEGATIVE A-HYDROXYTRIAZOLAM NEGATIVE ALPRAZOLAM NEGATIVE AMPHETAMINE NEGATIVE BENZOYLECGONINE NEGATIVE BUPRENORPHINE POSITIVE CHLORDIAZEPOXIDE NEGATIVE CLONAZEPAM NEGATIVE CODEINE NEGATIVE DEXTROMETHORPHAN NEGATIVE DIAZEPAM NEGATIVE DIHYDROCODEINE NEGATIVE EDDP NEGATIVE FENTANYL NEGATIVE FLUNITRAZEPAM NEGATIVE GABAPENTIN NEGATIVE HYDROCODONE NEGATIVE HYDROMORPHONE NEGATIVE JWH 018 N-4-OH PENTYL NEGATIVE LAMOTRIGINE NEGATIVE LORAZEPAM NEGATIVE MEPERIDINE NEGATIVE METHADONE NEGATIVE METHAMPHETAMINE NEGATIVE METHYLPHENIDATE NEGATIVE MORPHINE NEGATIVE NALOXONE POSITIVE NALTREXONE NEGATIVE N-DESMETHYLTAPENTADOL NEGATIVE NORBUPRENORPHINE POSITIVE NORDIAZEPAM NEGATIVE NORFENTANYL NEGATIVE NORMEPERIDINE NEGATIVE OXAZEPAM NEGATIVE OXYCODONE NEGATIVE OXYMORPHONE NEGATIVE XYLAZINE NEGATIVE PHENTERMINE POSITIVE PREGABALIN NEGATIVE SUFENTANIL NEGATIVE TAPENTADOL NEGATIVE TEMAZEPAM NEGATIVE THC-COOH NEGATIVE TRAMADOL NEGATIVE AMOBARBITAL NEGATIVE BUTABARBITAL NEGATIVE BUTALBITAL NEGATIVE PHENOBARBITAL NEGATIVE SECOBARBITAL NEGATIVE [facility] Reviewed date:09/27/2023 12:16:05 PM Interpretation:Abnormal Performing Lab: Notes/Report: TEMAZEPAM NEGATIVE A-HYDROXYALPRAZOLAM NEGATIVE DIAZEPAM NEGATIVE DIHYDROCODEINE NEGATIVE LORAZEPAM NEGATIVE THC-COOH NEGATIVE ETS POSITIVE METHAMPHETAMINE NEGATIVE NALOXONE POSITIVE NALTREXONE NEGATIVE JWH 018 N-4-OH PENTYL NEGATIVE LAMOTRIGINE NEGATIVE MEPERIDINE NEGATIVE A-HYDROXYMIDAZOLAM NEGATIVE AMPHETAMINE NEGATIVE BENZOYLECGONINE NEGATIVE BUPRENORPHINE POSITIVE CHLORDIAZEPOXIDE NEGATIVE CLONAZEPAM NEGATIVE CODEINE NEGATIVE DEXTROMETHORPHAN NEGATIVE METHADONE NEGATIVE 6-MONOACETYLMORPHINE NEGATIVE 7-AMINOCLONAZEPAM NEGATIVE 7-AMINOFLUNITRAZEPAM NEGATIVE ACETYL FENTANYL NEGATIVE A-HYDROXYTRIAZOLAM NEGATIVE ALPRAZOLAM NEGATIVE FENTANYL NEGATIVE PH NORMAL PHENTERMINE POSITIVE URINE SP. GRAVITY NORMAL URINE CREATININE FALSE EDDP NEGATIVE FLUNITRAZEPAM NEGATIVE GABAPENTIN NEGATIVE HYDROCODONE NEGATIVE METHYLPHENIDATE NEGATIVE HYDROMORPHONE NEGATIVE NORBUPRENORPHINE POSITIVE NORDIAZEPAM NEGATIVE MORPHINE NEGATIVE NORFENTANYL NEGATIVE NORMEPERIDINE NEGATIVE OXAZEPAM NEGATIVE OXYCODONE NEGATIVE OXYMORPHONE NEGATIVE XYLAZINE NEGATIVE PREGABALIN NEGATIVE SUFENTANIL NEGATIVE N-DESMETHYLTAPENTADOL NEGATIVE TAPENTADOL NEGATIVE TRAMADOL NEGATIVE AMOBARBITAL NEGATIVE BUTABARBITAL NEGATIVE BUTALBITAL NEGATIVE PHENOBARBITAL NEGATIVE SECOBARBITAL NEGATIVE ETG POSITIVE OXIDANTS DEFAULT Comp. Metabolic Panel (14) Reviewed date:12/17/2023 04:03:40 PM Interpretation:Normal Performing Lab:[facility] [place], [address] [facility], [place], Phone - [phone], Director - [facility] Notes/Report: Glucose 115 70-99 mg/dL BUN 15 6-24 mg/dL Creatinine 1.16 0.76-1.27 mg/dL eGFR 76 >59 mL/min/1.73 BUN/Creatinine Ratio 13 9-20 Sodium 137 134-144 mmol/L Potassium 4.4 3.5-5.2 mmol/L Chloride 98 96-106 mmol/L Carbon Dioxide, Total 26 20-29 mmol/L Calcium 9.7 8.7-10.2 mg/dL Protein, Total 7.1 6.0-8.5 g/dL Albumin 4.1 3.8-4.9 g/dL Globulin, Total 3.0 1.5-4.5 g/dL Bilirubin, Total 0.2 0.0-1.2 mg/dL Alkaline Phosphatase 83 44-121 IU/L AST (SGOT) 40 0-40 IU/L ALT (SGPT) 37 0-44 IU/L [facility] Reviewed date:12/19/2023 05:46:40 PM Interpretation: Performing Lab: Notes/Report: 6-MONOACETYLMORPHINE NEGATIVE 7-AMINOCLONAZEPAM NEGATIVE ETG NEGATIVE ETS NEGATIVE URINE SP. GRAVITY NORMAL URINE CREATININE FALSE XYLAZINE NEGATIVE TRAMADOL NEGATIVE A-HYDROXYALPRAZOLAM NEGATIVE A-HYDROXYMIDAZOLAM NEGATIVE 7-AMINOFLUNITRAZEPAM NEGATIVE ACETYL [place] NEGATIVE A-HYDROXYTRIAZOLAM NEGATIVE ALPRAZOLAM NEGATIVE AMPHETAMINE NEGATIVE BENZOYLECGONINE NEGATIVE BUPRENORPHINE POSITIVE CHLORDIAZEPOXIDE NEGATIVE CLONAZEPAM NEGATIVE CODEINE NEGATIVE DEXTROMETHORPHAN NEGATIVE DIAZEPAM NEGATIVE PH NORMAL OXIDANTS DEFAULT DIHYDROCODEINE NEGATIVE EDDP NEGATIVE FENTANYL NEGATIVE FLUNITRAZEPAM NEGATIVE GABAPENTIN NEGATIVE HYDROCODONE NEGATIVE HYDROMORPHONE NEGATIVE JWH 018 N-4-OH PENTYL NEGATIVE LAMOTRIGINE NEGATIVE LORAZEPAM NEGATIVE MEPERIDINE NEGATIVE METHADONE NEGATIVE METHAMPHETAMINE NEGATIVE METHYLPHENIDATE NEGATIVE MORPHINE NEGATIVE NALOXONE POSITIVE NALTREXONE NEGATIVE N-DESMETHYLTAPENTADOL NEGATIVE NORBUPRENORPHINE POSITIVE NORDIAZEPAM NEGATIVE NORFENTANYL NEGATIVE NORMEPERIDINE NEGATIVE OXAZEPAM NEGATIVE OXYCODONE NEGATIVE OXYMORPHONE NEGATIVE PHENTERMINE POSITIVE PREGABALIN NEGATIVE SUFENTANIL NEGATIVE TAPENTADOL NEGATIVE TEMAZEPAM NEGATIVE THC-COOH NEGATIVE AMOBARBITAL NEGATIVE BUTABARBITAL NEGATIVE BUTALBITAL NEGATIVE PHENOBARBITAL NEGATIVE SECOBARBITAL NEGATIVE [facility] Risk Reviewed date:02/19/2024 07:16:03 PM Interpretation: Performing Lab: Notes/Report: A-HYDROXYTRIAZOLAM NEGATIVE AMPHETAMINE NEGATIVE BUPRENORPHINE POSITIVE CLONAZEPAM NEGATIVE CODEINE NEGATIVE DIAZEPAM NEGATIVE EDDP NEGATIVE FENTANYL NEGATIVE GABAPENTIN NEGATIVE HYDROMORPHONE NEGATIVE JWH 018 N-4-OH PENTYL NEGATIVE LORAZEPAM NEGATIVE METHYLPHENIDATE NEGATIVE MORPHINE NEGATIVE NALOXONE POSITIVE N-DESMETHYLTAPENTADOL NEGATIVE NORDIAZEPAM NEGATIVE NORMEPERIDINE NEGATIVE OXYCODONE NEGATIVE PHENTERMINE POSITIVE SUFENTANIL NEGATIVE AMOBARBITAL NEGATIVE BUTABARBITAL NEGATIVE BUTALBITAL NEGATIVE PH NORMAL OXIDANTS DEFAULT ALPRAZOLAM NEGATIVE BENZOYLECGONINE NEGATIVE CHLORDIAZEPOXIDE NEGATIVE DEXTROMETHORPHAN POSITIVE DIHYDROCODEINE NEGATIVE FLUNITRAZEPAM NEGATIVE HYDROCODONE NEGATIVE LAMOTRIGINE NEGATIVE MEPERIDINE NEGATIVE METHADONE NEGATIVE METHAMPHETAMINE NEGATIVE NALTREXONE NEGATIVE NORBUPRENORPHINE POSITIVE NORFENTANYL NEGATIVE OXAZEPAM NEGATIVE OXYMORPHONE NEGATIVE PREGABALIN NEGATIVE TAPENTADOL NEGATIVE PHENOBARBITAL NEGATIVE SECOBARBITAL NEGATIVE 6-MONOACETYLMORPHINE NEGATIVE 7-AMINOCLONAZEPAM NEGATIVE 7-AMINOFLUNITRAZEPAM NEGATIVE ACETYL [place] NEGATIVE A-HYDROXYALPRAZOLAM NEGATIVE A-HYDROXYMIDAZOLAM NEGATIVE ETG NEGATIVE ETS NEGATIVE URINE SP. GRAVITY NORMAL URINE CREATININE FALSE XYLAZINE NEGATIVE TEMAZEPAM NEGATIVE THC-COOH NEGATIVE TRAMADOL NEGATIVE [facility] Reviewed date:03/20/2024 06:16:26 PM Interpretation: Performing Lab: Notes/Report: 6-MONOACETYLMORPHINE NEGATIVE ETG POSITIVE ETS POSITIVE NORMEPERIDINE NEGATIVE PH NORMAL URINE SP. GRAVITY NORMAL OXAZEPAM NEGATIVE OXIDANTS DEFAULT URINE CREATININE FALSE 7-AMINOCLONAZEPAM NEGATIVE ALPRAZOLAM NEGATIVE AMPHETAMINE NEGATIVE BENZOYLECGONINE NEGATIVE BUPRENORPHINE POSITIVE CHLORDIAZEPOXIDE NEGATIVE CLONAZEPAM NEGATIVE CODEINE NEGATIVE DEXTROMETHORPHAN NEGATIVE DIAZEPAM NEGATIVE DIHYDROCODEINE NEGATIVE EDDP NEGATIVE FENTANYL NEGATIVE FLUNITRAZEPAM NEGATIVE GABAPENTIN NEGATIVE HYDROCODONE NEGATIVE HYDROMORPHONE NEGATIVE JWH 018 N-4-OH PENTYL NEGATIVE LAMOTRIGINE NEGATIVE LORAZEPAM NEGATIVE MEPERIDINE NEGATIVE METHADONE NEGATIVE METHAMPHETAMINE NEGATIVE METHYLPHENIDATE NEGATIVE MORPHINE NEGATIVE NALOXONE POSITIVE NALTREXONE NEGATIVE N-DESMETHYLTAPENTADOL NEGATIVE NORBUPRENORPHINE POSITIVE NORDIAZEPAM NEGATIVE NORFENTANYL NEGATIVE OXYCODONE NEGATIVE XYLAZINE NEGATIVE PHENTERMINE POSITIVE PREGABALIN NEGATIVE SUFENTANIL NEGATIVE OXYMORPHONE NEGATIVE TAPENTADOL NEGATIVE TEMAZEPAM NEGATIVE THC-COOH NEGATIVE TRAMADOL NEGATIVE AMOBARBITAL NEGATIVE BUTABARBITAL NEGATIVE BUTALBITAL NEGATIVE PHENOBARBITAL NEGATIVE SECOBARBITAL NEGATIVE 7-AMINOFLUNITRAZEPAM NEGATIVE ACETYL F[place]ANYL NEGATIVE A-HYDROXYALPRAZOLAM NEGATIVE A-HYDROXYMIDAZOLAM NEGATIVE A-HYDROXYTRIAZOLAM NEGATIVE [facility] Reviewed date:10/25/2023 11:06:58 AM Interpretation: Performing Lab: Notes/Report: 7-AMINOFLUNITRAZEPAM NEGATIVE 6-MONOACETYLMORPHINE NEGATIVE METHYLPHENIDATE NEGATIVE OXAZEPAM NEGATIVE PHENTERMINE POSITIVE PREGABALIN NEGATIVE THC-COOH NEGATIVE TRAMADOL NEGATIVE AMOBARBITAL NEGATIVE BUTALBITAL NEGATIVE SECOBARBITAL NEGATIVE ETS POSITIVE A-HYDROXYTRIAZOLAM NEGATIVE ALPRAZOLAM NEGATIVE BUPRENORPHINE POSITIVE DEXTROMETHORPHAN NEGATIVE EDDP NEGATIVE LAMOTRIGINE NEGATIVE DIHYDROCODEINE NEGATIVE A-HYDROXYALPRAZOLAM NEGATIVE A-HYDROXYMIDAZOLAM NEGATIVE 7-AMINOCLONAZEPAM NEGATIVE AMPHETAMINE NEGATIVE BENZOYLECGONINE NEGATIVE CODEINE NEGATIVE DIAZEPAM NEGATIVE HYDROMORPHONE NEGATIVE JWH 018 N-4-OH PENTYL NEGATIVE LORAZEPAM NEGATIVE METHADONE NEGATIVE METHAMPHETAMINE NEGATIVE N-DESMETHYLTAPENTADOL NEGATIVE NORBUPRENORPHINE POSITIVE NORDIAZEPAM NEGATIVE NORFENTANYL NEGATIVE NORMEPERIDINE NEGATIVE XYLAZINE NEGATIVE TAPENTADOL NEGATIVE TEMAZEPAM NEGATIVE BUTABARBITAL NEGATIVE PHENOBARBITAL NEGATIVE FLUNITRAZEPAM NEGATIVE GABAPENTIN NEGATIVE HYDROCODONE NEGATIVE MEPERIDINE NEGATIVE SUFENTANIL NEGATIVE CHLORDIAZEPOXIDE NEGATIVE CLONAZEPAM NEGATIVE ETG POSITIVE ACETYL FENTANYL NEGATIVE URINE SP. 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 Stress is when someone feels tense, nervous, anxious, or cant sleep at night because their mind is troubled Not at all In the past year have you sp ent more than 2 nights in a row in a retirement, half-way, nursing home center, or juvenile correctional facility? No Do [...] Problem Status W/U Status Risk Notes Problem 182864760 Tobacco abuse counseling (Z71.6) Active confirmed Problem 033089064 Other terminal gauger (current) drug therapy (Z79.899) Active confirmed Problem 27120254 Other chronic pain (G89.29) Active confirmed Problem 594654177 Tobacco abuse (Z72.0) Active confirmed Problem Screening for colon cancer (857268199) Screening for colon cancer (Z12.11) Active confirmed Problem Tobacco dependence (32082189) Tobacco dependence (F17.200) Active confirmed Problem 133707470 BMI 40.0-44.9, adult (Z68.41) Active confirmed Problem 859020124 Type 2 diabetes mellitus without complication, without long-term current use of insulin (E11.9) Active confirmed Problem 836988281 BMI 38.0-38.9,adult (Z68.38) Active confirmed Problem 182792381 BMI 39.0-39.9,adult (Z68.39) Active confirmed Problem 647094377 Morbid obesity (E66.01) Active confirmed Problem 40033449 Severe episode of recurrent major depressive disorder, without psychotic features (F33.2) Active confirmed Problem 788653 Moderate major depression (F32.1) Active confirmed Problem Hypertension (14427155) Hypertension (I10) Active confirmed Problem 398547831 Adult BMI 39.0-39.9 kg/sq m (Z68.39) Active confirmed Problem Tobacco user (909260942) Tobacco dependence due to chewing tobacco (F17.220) Active confirmed Problem 337135531 Severe depression (F32.2) Active confirmed Problem Opioid dependence (32171424) Opioid dependence (F11.20) Active confirmed Problem 76150013 Mild anxiety (F41.9) Active confirmed Problem Opioid dependence (99229363) Opioid Use Disoder (F11.20) Active confirmed Problem 814545060 Body mass index [BMI] 38.0-38.9, adult (Z68.38) Active confirmed Problem 618207686 Morbidly obese (E66.01) Active confirmed Problem Low back pain (061071890) Low back pain, unspecified (M54.50) Active confirmed Problem Body mass index 40+ - severely obese (580306539) Body mass index [BMI] 40.0-44.9, adult (Z68.41) Active confirmed Vital Signs Heart Rate 76 /min 08/01/2024 Temperature 98 degrees Fahrenheit 08/01/2024 Respiratory Rate 18 /min 08/01/2024 Oximetry 98 % 07/03/2024 Blood pressure diastolic 84 mm Hg 08/01/2024 Weight-kg 137.44 kg 08/01/2024 Height 74 in 08/01/2024 Blood pressure systolic 131 mm Hg 08/01/2024 Weight 303 lbs 08/01/2024 BMI 38.9 kg/m2 08/01/2024 Encounters Encounter Location Date Provider Diagnosis [facility] [address] [place] [address] 08/24/2023 Inessa Joseph Opioid dependence F11.20 ; Tobacco abuse counseling Z71.6 ; Tobacco dependence F17.200 and Lower extremity edema R60.0 [facility] [address] [place] [address] 09/20/2023 Martha Bermeo Opioid dependence F11.20 ; Tobacco abuse counseling Z71.6 ; Tobacco dependence F17.200 and Hypertension I10 [facility] [address] [place] [address] 10/19/2023 Inessa Joseph Opioid dependence F11.20 ; Tobacco abuse counseling Z71.6 ; Tobacco dependence F17.200 ; Hypertension I10 and Mild anxiety F41.9 [facility] [address] [facility] [place] [address] 11/15/2023 Martha Bermeo Opioid dependence F11.20 ; Tobacco abuse counseling Z71.6 ; Tobacco dependence F17.200 ; Hypertension I10 and Mild anxiety F41.9 [facility] [address] [facility] [place] [address] 12/13/2023 Martha Ellis Opioid dependence F11.20 ; Tobacco abuse counseling Z71.6 ; Tobacco dependence F17.200 ; Type 2 diabetes mellitus without complication, without long-term current use of insulin E11.9 and Other chronic pain G89.29 [facility] [address] [place] [address] 01/10/2024 Marthasobia Bermeo Opioid dependence F11.20 ; Tobacco abuse counseling Z71.6 and Tobacco dependence F17.200 [facility] [address] [facility] [place] [address] 01/10/2024 Tarik Marquez [facility] Opioid dependence F11.20 [facility] [address] [place] [address] 2024 Inessa Joseph Opioid dependence F11.20 ; Tobacco abuse counseling Z71.6 ; Tobacco dependence F17.200 ; BMI 40.0-44.9, adult Z68.41 and Severe depression F32.2 [facility] [address] [place] [address] 03/06/2024 Inessa Joseph Opioid dependence F11.20 ; Tobacco abuse counseling Z71.6 ; Tobacco dependence F17.200 ; BMI 40.0-44.9, adult Z68.41 ; Severe depression F32.2 and Adult BMI 39.0-39.9 kg/sq m Z68.39 [facility] [address] [place] [address] 04/04/2024 Inessa Joseph Opioid dependence F11.20 ; Tobacco abuse Z72.0 ; Tobacco abuse counseling Z71.6 ; Severe depression F32.2 and Adult BMI 39.0-39.9 kg/sq m Z68.39 [facility] [address] [facility] [place] [address] 05/01/2024 Martha Bermeo Opioid dependence F11.20 ; Tobacco abuse Z72.0 ; Tobacco abuse counseling Z71.6 and Adult BMI 39.0-39.9 kg/sq m Z68.39 [facility] [address] [facility] [place] [address] 06/05/2024 Marthasobia Bermeo Opioid dependence F11.20 ; Tobacco abuse Z72.0 ; Tobacco abuse counseling Z71.6 ; Body mass index [BMI] 38.0-38.9, adult Z68.38 and Moderate major depression F32.1 [facility] [address] [facility] [place] [address] 07/03/2024 Tarik Marquez [facility] Opioid dependence F11.20 [facility] [address] [facility] [place] [address] 07/03/2024 Inessa Joseph Opioid dependence F11.20 ; Severe episode of recurrent major depressive disorder, without psychotic features F33.2 ; Tobacco dependence due to chewing tobacco F17.220 ; Tobacco abuse counseling Z71.6 and BMI 39.0-39.9,adult Z68.39 [facility] [address] [facility] [place] [address] 08/01/2024 Martha Ellis Opioid dependence F11.20 ; Tobacco dependence due to chewing tobacco F17.220 ; Tobacco abuse counseling Z71.6 and BMI 38.0-38.9,adult Z68.38 [facility] [address] [place] [address] 10/10/2023 Inessa Joseph Hypertension I10 [facility] [address] [place] [address] 11/05/2023 Inessa Joseph Lower extremity pardeep a R60.0 [facility] [address] [place] [address] 11/19/2023 [facility] [place] [address] [place] [address] 11/19/2023 Martha Ellis [facility] [address] [place] [address] 12/17/2023 Martha Bermeo [facility] [place] [address] [place] [address] 12/18/2023 Martha Ellis [facility] [address] [facility] [place] [address] 04/03/2024 Martha Ellis [facility] [address] [facility] [place] [address] 05/05/2024 Martha Ellis [facility] [address] [facility] [place] [address] 05/06/2024 Martha Ellis [facility] [address] [facility] [place] [address] 05/06/2024 Martha Ellis Opioid dependence F11.20 [facility] [address] [facility] [place] [address] 05/06/2024 Martha Bermeo Assessments Encounter Date Diagnosis (ICD Code) Assessment Notes Treatment Notes Treatment Clinical Notes Section Notes 06/05/2024 Opioid dependence (ICD-10 - F11.20) Patient to [...] #56 ii sl [id number]. Rx escribed to [facility] This gives patient medication through 07-03-24. Recheck lab . Had individual counseling on 04-03-24. Next is scheduled 07-03-24 with Mellisa Guaman. 07/03/2024 Opioid dependence (ICD-10 - F11.20) Gama will continue to participate in [facility] MAT program for ongoing support and maintenance [...] opportunity for healing and self-care. Therapist and Gmaa discussed developing a new routine that supports both Gama's physical health and emotional well-being, including scheduling pleasant activities and setting achievable goals outside of work. Gama was encouraged to acknowledge his resilience and to continue focusing on the progress he's made in recovery, recognizing that staying well is now a central part of his purpose. 07/03/2024 Severe episode of recurrent major depressive disorder, without psychotic features (ICD-10 - F33.2) Explained that depression is a medical illness that needs to be treated. Discussed additional of exercise to daily routine as well as discussed benefits of counseling as well. Will make appropriate referral to social economist if pt agrees. 07/03/2024 Opioid dependence (ICD-10 - F11.20) Patient [...] #56 ii sl 1xqd. Rx escribed to [place] [facility] Patient scheduled to see Mellisa Guaman 07/03 with next appt scheduled 08/01/24 08/01/2024 Tobacco dependence due to chewing tobacco (ICD-10 - F17.220) Counseled for 15 minutes. Advised tobacco cessation. Discussed health risk of continued tobacco use. Discussed barriers to cessation and strategies to overcome these barriers. Discussed [employer] program and handout (including phone number) provided to pt. Patient is not ready to quit. 08/01/2024 Opioid dependence (ICD-10 - F11.20) Patient [...] also to continue individual and group counseling. 11/15/2023 Opioid dependence (ICD-10 - F11.20) Patient to [...] also to continue individual and group counseling. Last screen on 10-19-23 positive for phentermine, ets, etg, bup and norbup. He does not have current prescription for phentermine according to [facility]. Patient was scheduled to see Elan Guaman on 09/20 but was rescheduled. Next appt is scheduled for 11/23/23. Suboxone 8/2 mg films 2 Sl daily x 28 days for a total of 56 tablets escribed to [facility] in [place]. 09/20/2023 Opioid dependence (ICD-10 - F11.20) Patient to [...] also to continue individual and group counseling. 08/24/2023 Opioid dependence (ICD-10 - F11.20) Patient to [...] also to continue individual and group counseling. 10/10/2023 Hypertension (ICD-10 - I10) 11/05/2023 Lower extremity edema (ICD-10 - R60.0) 10/19/2023 Opioid dependence (ICD-10 - F11.20) Patient to [...] also to continue individual and group counseling. Last screen on 09/19 positive for phentermine, ets, etg, bup and norbup Patient was scheduled to see Elan Guaman on 09/20 but was rescheduled. Next appt is scheduled for 11/23/23 Discussed patients screen- particularly in light of uncontrolled hypertension and positive alcohol and phentermine. Suboxone 8/2 mg films 2 Sl daily x 28 days for a total of 56 tablets escribed to [facility] in [place] 12/13/2023 Opioid dependence (ICD-10 - F11.20) Patient to [...] also to continue individual and group counseling. 01/10/2024 Opioid dependence (ICD-10 - F11.20) Patient to [...] counseling. Suboxone 8/2mg film #56 ii sl 1xqd Rx escribed to [facility]. This gives patient medication through 02-07-24. Recheck lab . Had individual counseling today with Mauricio Guaman. Transitioned from previous counselor today who is no longer with [facility]. Next is scheduled 02-07-24. He denies alcohol use in last few weeks. I'm taking Mounjaro and trying to lose weight because my lungs and knees are so bad. I get short of breath just walking around. He reports 11 pound weight loss in 2 months. 01/10/2024 Opioid dependence (ICD-10 - F11.20) Patient will continue to attend [facility]'s MAT program services at this time. Therapist and patient will continue to explore and identify maladaptive behaviors associated with substance use. Therapist will continue to educate, encourage, and support the patient in their recovery process. In today's therapy session, Gama expressed pride in his recovery progress, noting he attends monthly for maintenance and is feeling stable. He shared some health concerns, attributing them to a lifetime of work. Therapist and patient explored Gama's positive thoughts on his recovery, identifying and reinforcing self-affirming beliefs ( I am proud of where I am in my recovery ), which strengthen his motivation to remain substance-free. To address his health-related concerns, we utilized cognitive restructuring to reframe potentially distressing thoughts, exploring how his work ethic and perseverance have contributed to his resilience, both physically and mentally, in managing recovery. Additionally, therapist and patient discussed creating a balanced self-care plan that incorporates realistic health practices Gama can adopt without overwhelming himself, thus reducing any potential stress that might impact his recovery. Gama was encouraged to continue monitoring his physical well-being and to recognize the connection between maintaining his health and sustaining recovery, reframing this maintenance as a form of self-compassion and commitment to his long-term goals 2024 Opioid dependence (ICD-10 - F11.20) Patient to [...] also to continue individual and group counseling. Last screen positive for bup, norbup, phentrmine, etg, ets Patient had individual counseling with Mellisa Guaman on 01/09 with next session scheduled for 04/03/23 Suboxone 8/2 mg tablets 2 SL daily x 30 days escribed to [facility] Discouraged the use of alcohol with suboxone 03/06/2024 Opioid dependence (ICD-10 - F11.20) Patient to [...] also to continue individual and group counseling. Last screen positive for bup, norbup, phentrmine, etg, ets Patient had individual counseling with Mellisa Guaman on 01/09 with next session scheduled for 04/03/23 Suboxone 8/2 mg tablets 2 SL daily x 30 days escribed to [facility] Discouraged the use of alcohol with suboxone 04/04/2024 Opioid dependence (ICD-10 - F11.20) Patient to [...] also to continue individual and group counseling. Last screen on 03/06 positive for bup, norbup, phentrmine, etg, ets Patient had individual counseling scheduled with Mellisa Guaman on 03/06 but was a no show, with next session scheduled for 04/03/23 Suboxone 8/2 mg tablets 2 SL daily x 26 days for a total of 52 films escribed to [email or web address] Discouraged the use of alcohol with suboxone 05/01/2024 Tobacco abuse (ICD-10 - Z72.0) Advised tobacco cessation. Discussed health risk of continued tobacco use. Discussed barriers to cessation and strategies to overcome these barriers. Discussed [employer]uitNow program and handout (including phone number) provided to pt. 05/01/2024 Opioid dependence (ICD-10 - F11.20) Patient to [...] also to continue individual and group counseling. Last screen on 03/06 positive for bup, norbup, phentrmine, etg, ets. Patient had individual counseling scheduled with Melilsa Guaman on 03/06 but was a no show, with next session to be scheduled. Suboxone 8/2 mg tablets 2 SL daily x 26 days for a total of 52 films escribed to [facility] in [facility] [place]. Discouraged the use of alcohol with suboxone but continues to test positive each month. He does admit to occasional beer. 05/06/2024 Opioid dependence (ICD-10 - F11.20) 06/05/2024 Tobacco abuse (ICD-10 - Z72.0) Advised tobacco cessation. Discussed health risk of continued tobacco use. Discussed barriers to cessation and strategies to overcome these barriers. Discussed [employer] program and handout (including phone number) provided to pt. 06/05/2024 Tobacco abuse counseling (ICD-10 - Z71.6) Counseled for 5 minutes. Advised tobacco cessation. Discussed health risk of continued tobacco use. Discussed barriers to cessation and strategies to overcome these barriers. Discussed [employer]Now program and handout (including phone number) provided to pt. Patient is not ready to quit. 05/01/2024 Tobacco abuse counseling (ICD-10 - Z71.6) Counseled for 5 minutes. Advised tobacco cessation. Discussed health risk of continued tobacco use. Discussed barriers to cessation and strategies to overcome these barriers. Discussed [facility]Now program and handout (including phone number) provided to pt. Patient is not ready to quit. 04/04/2024 Tobacco abuse (ICD-10 - Z72.0) Advised tobacco cessation. Discussed health risk of continued tobacco use. Discussed barriers to cessation and strategies to overcome these barriers. Discussed [facility]uitNow program and handout (including phone number) provided to pt. 01/10/2024 Tobacco abuse counseling (ICD-10 - Z71.6) Counseled for 5 minutes. Advised tobacco cessation. Discussed health risk of continued tobacco use. Discussed barriers to cessation and strategies to overcome these barriers. Discussed [employer]Now program and handout (including phone number) provided to pt. Patient is not ready to quit. 03/06/2024 Tobacco abuse counseling (ICD-10 - Z71.6) Counseled for 5 minutes. Advised tobacco cessation. Discussed health risk of continued tobacco use. Discussed barriers to cessation and strategies to overcome these barriers. Discussed [facility]Now program and handout (including phone number) provided to pt. Patient is not ready to quit. 2024 Tobacco abuse counseling (ICD-10 - Z71.6) Counseled for 5 minutes. Advised tobacco cessation. Discussed health risk of continued tobacco use. Discussed barriers to cessation and strategies to overcome these barriers. Discussed [facility]Now program and handout (including phone number) provided to pt. Patient is not ready to quit. 12/13/2023 Tobacco abuse counseling (ICD-10 - Z71.6) Counseled for 5 minutes. Advised tobacco cessation. Discussed health risk of continued tobacco use. Discussed barriers to cessation and strategies to overcome these barriers. Discussed [employer]Now program and handout (including phone number) provided to pt. Patient is not ready to quit. 10/19/2023 Tobacco abuse counseling (ICD-10 - Z71.6) Counseled for 5 minutes. Advised tobacco cessation. Discussed health risk of continued tobacco use. Discussed barriers to cessation and strategies to overcome these barriers. Discussed [facility]Now program and handout (including phone number) provided to pt. Patient is not ready to quit. 08/24/2023 Tobacco abuse counseling (ICD-10 - Z71.6) Counseled for 5 minutes. Advised tobacco cessation. Discussed health risk of continued tobacco use. Discussed barriers to cessation and strategies to overcome these barriers. Discussed [facility] program and handout (including phone number) provided to pt. Patient is not ready to quit. 09/20/2023 Tobacco abuse counseling (ICD-10 - Z71.6) Counseled for 5 minutes. Advised tobacco cessation. Discussed health risk of continued tobacco use. Discussed barriers to cessation and strategies to overcome these barriers. Discussed [facility]Now program and handout (including phone number) provided to pt. Patient is not ready to quit. 11/15/2023 Tobacco abuse counseling (ICD-10 - Z71.6) Counseled [...] is not ready to quit. 07/03/2024 Tobacco dependence due to chewing tobacco [...] daily each. Advised to limit calories to 2084-9193/day. Will reevaluate weight each visit. 07/03/2024 Tobacco abuse counseling (ICD-10 - Z71.6) Counseled for 5 minutes. Advised tobacco cessation. Discussed health risk of continued tobacco use. Discussed barriers to cessation and strategies to overcome these barriers. Discussed [facility] program and handout (including phone number) provided to pt. Patient is not ready to quit. 06/05/2024 Body mass index [BMI] 38.0-38.9, adult (ICD-10 - Z68.38) Should exercise 20-30min 4-5 days/week, may begin with walking, increase as tolerated. If able, at least 2 days/week of resistance exercises. Suggestions provided for local exercise opportunities. Recommended elimination of sugar sweetened beverages from diet and increase amt of fruits and vegetables consumed daily; 5 servings daily each. Advised to limit calories to 2954-5936/day. Will reevaluate weight each visit. 11/15/2023 Tobacco dependence (ICD-10 - F17.200) Advised smoking cessation. Pt precontemplative. Declines specific intervention. Discussed benefits of quitting along with tips for cessation. Encouraged to contact [facility] for further information and coaching assistance. V/U. 09/20/2023 Tobacco dependence (ICD-10 - F17.200) Advised smoking cessation. Pt precontemplative. Declines specific intervention. Discussed benefits of quitting along with tips for cessation. Encouraged to contact [facility] for further information and coaching assistance. V/U. 08/24/2023 Tobacco dependence (ICD-10 - F17.200) Advised smoking cessation. Pt precontemplative. Declines specific intervention. Discussed benefits of quitting along with tips for cessation. Encouraged to contact [facility] for further information and coaching assistance. V/U. 10/19/2023 Tobacco dependence (ICD-10 - F17.200) Advised smoking cessation. Pt precontemplative. Declines specific intervention. Discussed benefits of quitting along with tips for cessation. Encouraged to contact [facility] for further information and coaching assistance. V/U. 12/13/2023 Tobacco dependence (ICD-10 - F17.200) Advised smoking cessation. Pt precontemplative. Declines specific intervention. Discussed benefits of quitting along with tips for cessation. Encouraged to contact [facility] for further information and coaching assistance. V/U. 2024 Tobacco dependence (ICD-10 - F17.200) Advised smoking cessation. Pt precontemplative. Declines specific intervention. Discussed benefits of quitting along with tips for cessation. Encouraged to contact [facility] for further information and coaching assistance. V/U. 03/06/2024 Tobacco dependence (ICD-10 - F17.200) Advised smoking cessation. Pt precontemplative. Declines specific intervention. Discussed benefits of quitting along with tips for cessation. Encouraged to contact [facility] for further information and coaching assistance. V/U. 01/10/2024 Tobacco dependence (ICD-10 - F17.200) Advised smoking cessation. Pt precontemplative. Declines specific intervention. Discussed benefits of quitting along with tips for cessation. Encouraged to contact [facility] for further information and coaching assistance. V/U. 04/04/2024 Tobacco abuse counseling (ICD-10 - Z71.6) Counseled for 5 minutes. Advised tobacco cessation. Discussed health risk of continued tobacco use. Discussed barriers to cessation and strategies to overcome these barriers. Discussed [facility] program and handout (including phone number) provided to pt. Patient is not ready to quit. 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 Explained that the effect of antidepressants may not seen until 3-4 after the med is started. Instructed pt to stop the medication and come to office or ER if they experience increased depression, worsening moods or increased thoughts of suicide or homicide. Discussed additional of exercise to daily routine as well as discussed benefits of counseling as well. Will reevaluate effectiveness of med in 4 weeks. Overall healthy lifestyle to promote good mental health. 03/06/2024 BMI 40.0-44.9, adult (ICD-10 - Z68.41) Discussed elevated BMI. Stressed need to increase [...] daily each. Advised to limit calories to 6879-6499/day. Will reevaluate weight each visit. Patient has lost 21 pounds in past 3 months continue to encourage weight loss 2024 BMI 40.0-44.9, adult (ICD-10 - Z68.41) Discussed elevated BMI. Stressed need to increase [...] daily each. Advised to limit calories to 2573-3424/day. Will reevaluate weight each visit. Patient has lost 21 pounds in past 3 months continue to encourage weight loss 12/13/2023 Type 2 diabetes mellitus without complication, without long-term current use of insulin (ICD-10 - E11.9) Instructed on use of Plate Method in helping control portion sizes and balance of meals. Advised to check BG as directed and keep log, bring log to next office visit for review and discussion. Stressed the importance of taking medications as directed. Try to eat carbs consistently throughout the day to prevent variability and help prevent hypoglycemia. Advised to schedule yearly diabetic eye and podiatric examinations. Reviewed goals of therapy, Rule of 15's. Patient has been taking Mounjaro 2.5mg weekly x 4 weeks. He has lost 11#. Increased dose to 5ng weekly x 4 weeks today. 10/19/2023 Hypertension (ICD-10 - I10) Patients blood pressure 154/83 and 144/79 in office today , Continue medication as directed; encouraged to lower sodium intake to less than 1500mg daily, avoid processed foods that are high in salt. To continue home bp monitoring as discussed. Call if any questions or concerns. Patient is noncompliant with medication, encouraged compliance with current dose to determine changes needed to make to treatment. Encouraged to keep BP log and bring to office next visit. Also instructed to stop use of cocaine and encouraged cessation of use of other stiimulants such as nicotine or caffeine that affect BP. Encouraged stress management, Continue medication as directed; encouraged to lower sodium intake to less than 1500mg daily, avoid processed foods that are high in salt. To continue home bp monitoring as discussed. Call if any questions or concerns. Patient is noncompliant with medication, encouraged compliance with current dose to determine changes needed to make to treatment. Encouraged to keep BP log and bring to office next visit. Also instructed to stop use of cocaine and encouraged cessation of use of other stiimulants such as nicotine or caffeine that affect BP. Encouraged stress management Patient is consistently positive for phentermine and alcohol which are likely influencing his bp. He also admidts to forgetting to take his medication. He is strongly encouraged to stop the use of phentermine an alcohol, moderate weight loss, increase exercise, stress management, avoid stimulants including nicotine and caffeine and obtain adequate rest and sleep 08/24/2023 Lower extremity edema (ICD-10 - R60.0) elevate lower extremities, monitor output, check labs cmp, bnp. low sodium diet, weigh daily in am notify if gain over 3 pounds , patient has lost 6 pounds since last visit. adequate rest and sleep encouraged. Encouraged to reduce weight, and to decrease alcohol consumption. 09/20/2023 Hypertension (ICD-10 - I10) Patients blood pressure 154/83 and 144/79 in office today 11/15/2023 Hypertension (ICD-10 - I10) Reviewed HTN lifestyle recommendations. Advised to follow low salt diet (limit 1500mg/day), take meds as ordered, increase exercise with goal of at least 150 min per week and reduce wt. Patient is consistently positive for phentermine and alcohol which are likely influencing his bp. He also admidts to forgetting to take his medication. He is strongly encouraged to stop the use of phentermine an alcohol, moderate weight loss, increase exercise, stress management, avoid stimulants including nicotine and caffeine and obtain adequate rest and sleep 07/03/2024 BMI 39.0-39.9,adult (ICD-10 - Z68.39) Should exercise 20-30min 4-5 days/week, may begin with walking, increase as tolerated. If able, at least 2 days/week of resistance exercises. Suggestions provided for local exercise opportunities. Recommended elimination of sugar sweetened beverages from diet and increase amt of fruits and vegetables consumed daily; 5 servings daily each. Advised to limit calories to 5768-5701/day. Will reevaluate weight each visit. 04/04/2024 Severe depression (ICD-10 - F32.2) Explained that depression is a medical illness that needs to be treated. Explained that the effect of antidepressants may not seen until 3-4 after the med is started. Instructed pt to stop the medication and come to office or ER if she experiences increased depression, worsening moods or increased thoughts of suicide or homicide. Discussed additional of exercise to daily routine as well as discussed benefits of counseling as well. Will reevaluate effectiveness of med in 4 weeks.Overall healthy lifestyle to promote good mental health. 11/15/2023 Mild anxiety (ICD-10 - F41.9) Daily physical exercise, good sleep hygiene, consider hobby to occupy spare time, avoid alcohol, tobacco, caffeine. Recommend relaxation techniques with meditation, yoga or breathing exercises. 10/19/2023 Mild anxiety (ICD-10 - F41.9) Daily physical exercise, good sleep hygiene, consider hobby to occupy spare time, avoid alcohol, tobacco, caffeine. Recommend relaxation techniques with meditation, yoga or breathing exercises. 12/13/2023 Other chronic pain (ICD-10 - G89.29) Encouraged stretching exercises, may alternate use of ice packs and heating pad as needed, sleep on firm surface, cont regular exercise including walking, OTC topical analgesics/ NSAIDs as needed for aches, wear low heels or flats, observe proper posture when sitting 2024 Severe depression (ICD-10 - F32.2) Explained that depression is a medical illness that needs to be treated. Explained that the effect of antidepressants may not seen until 3-4 after the med is started. Instructed pt to stop the medication and come to office or ER if she experiences increased depression, worsening moods or increased thoughts of suicide or homicide. Discussed additional of exercise to daily routine as well as discussed benefits of counseling as well. Will reevaluate effectiveness of med in 4 weeks.Overall healthy lifestyle to promote good mental health. 03/06/2024 Severe depression (ICD-10 - F32.2) Explained that depression is a medical illness that needs to be treated. Explained that the effect of antidepressants may not seen until 3-4 after the med is started. Instructed pt to stop the medication and come to office or ER if she experiences increased depression, worsening moods or increased thoughts of suicide or homicide. Discussed additional of exercise to daily routine as well as discussed benefits of counseling as well. Will reevaluate effectiveness of med in 4 weeks.Overall healthy lifestyle to promote good mental health. 04/04/2024 Adult BMI 39.0-39.9 kg/sq m (ICD-10 - Z68.39) 1500 clarita heart healthy diet encouraged, moderate weight loss, encouraged exercise by walking 30 minutes a day, Will weigh each visit 03/06/2024 Adult BMI 39.0-39.9 kg/sq m (ICD-10 - Z68.39) 04/03/2024 Other Patient informed that [facility] has oncall providers available 02/10 by dialing regular clinic number. Also informed patient to sign up for the patient portal and explained process and advantages of using the portal including communication with provider, refill requests, review labs, etc. Pt also reminded to bring all medications to each visit. Also reviewed current CDC and state guidelines and recommendations for preventing spread of COVID19. V/U Patient has lost 21 pounds in past 3 months continue to encourage weight loss 01/18/2024 Other Pt advised clin has a provider monotype caster 02/10, to call main clinic number, , will be forwarded to an answering service then connected with the provider. Call if condition worsens or patient has questions. V/U. Instructed on use of Plate Method in helping control portion sizes and balance of meals. Advised to check BG as directed and keep log, bring log to next office visit for review and discussion. Stressed the importance of taking medications as directed. Try to eat carbs consistently throughout the day to prevent variability and help prevent hypoglycemia. Advised to schedule yearly diabetic eye and podiatric examinations. Reviewed goals of therapy, Rule of 15's. Encouraged stretching exercises, may alternate use of ice packs and heating pad as needed, sleep on firm surface, cont regular exercise including walking, OTC topical analgesics/ NSAIDs as needed for aches, wear low heels or flats, observe proper posture when sitting 12/21/2023 Other Pt advised clin has a provider monotype caster 02/10, to call main clinic number, [phone], will be forwarded to an answering service then connected with the provider. Call if condition worsens or patient has questions. V/U. 11/23/2023 Other Pt advised [facility] has a provider monotype caster 02/10, to call main clinic number, [phone], will be forwarded to an answering service then connected with the provider. Call if condition worsens or patient has questions. V/U. elevate lower extremities, monitor output, check labs cmp, bnp. low sodium diet, weigh daily in am notify if gain over 3 pounds , patient has lost 6 pounds since last visit. adequate rest and sleep encouraged. Encouraged to reduce weight, and to decrease alcohol consumption. 09/28/2023 Other Pt advised [facility] has a provider monotype caster 02/10, to call main clinic number, [phone], will be forwarded to an answering service then connected with the provider. Call if condition worsens or patient has questions. V/U. elevate lower extremities, monitor output, check labs cmp, bnp. low sodium diet, weigh daily in am notify if gain over 3 pounds , patient has lost 6 pounds since last visit. adequate rest and sleep encouraged. Encouraged to reduce weight, and to decrease alcohol consumption. 08/31/2023 Other Pt advised [facility] has a provider monotype caster 02/10, to call main clinic number, [phone], will be forwarded to an answering service then connected with the provider. Call if condition worsens or patient has questions. V/U. 08/24/2023 Other Pt advised clin has a provider monotype caster 02/10, to call main clinic number, [phone], will be forwarded to an answering service then connected with the provider. Call if condition worsens or patient has questions. V/U. 09/20/2023 Other Pt advised clinic has a provider monotype caster 02/10, to call main clinic number, [phone], will be forwarded to an answering service then connected with the provider. Call if condition worsens or patient has questions. V/U. elevate lower extremities, monitor output, check labs cmp, bnp. low sodium diet, weigh daily in am notify if gain over 3 pounds , patient has lost 6 pounds since last visit. adequate rest and sleep encouraged. Encouraged to reduce weight, and to decrease alcohol consumption. 10/19/2023 Other Pt advised [facility] has a provider monotype caster 02/10, to call main clinic number, [phone], will be forwarded to an answering service then connected with the provider. Call if condition worsens or patient has questions. V/U. elevate lower extremities, monitor output, check labs cmp, bnp. low sodium diet, weigh daily in am notify if gain over 3 pounds , patient has lost 6 pounds since last visit. adequate rest and sleep encouraged. Encouraged to reduce weight, and to decrease alcohol consumption. 11/15/2023 Other Pt advised [facility] has a provider monotype caster 02/10, to call main clinic number, [phone], will be forwarded to an answering service then connected with the provider. Call if condition worsens or patient has questions. V/U. elevate lower extremities, monitor output, check labs cmp, bnp. low sodium diet, weigh daily in am notify if gain over 3 pounds , patient has lost 6 pounds since last visit. adequate rest and sleep encouraged. Encouraged to reduce weight, and to decrease alcohol consumption. 12/13/2023 Other Pt advised [facility] has a provider monotype caster 02/10, to call main clinic number, [phone], will be forwarded to an answering service then connected with the provider. Call if condition worsens or patient has questions. V/U. 01/10/2024 Other Pt advised [facility] has a provider monotype caster 02/10, to call main clinic number, [phone], will be forwarded to an answering service then connected with the provider. Call if condition worsens or patient has questions. V/U. Instructed on use of Plate Method in helping control portion sizes and balance of meals. Advised to check BG as directed and keep log, bring log to next office visit for review and discussion. Stressed the importance of taking medications as directed. Try to eat carbs consistently throughout the day to prevent variability and help prevent hypoglycemia. Advised to schedule yearly diabetic eye and podiatric examinations. Reviewed goals of therapy, Rule of 15's. Encouraged stretching exercises, may alternate use of ice packs and heating pad as needed, sleep on firm surface, cont regular exercise including walking, OTC topical analgesics/ NSAIDs as needed for aches, wear low heels or flats, observe proper posture when sitting 2024 Other Pt advised [facility] has a provider monotype caster 02/10, to call main clinic number, , will be forwarded to an answering service then connected with the provider. Call if condition worsens or patient has questions. V/U. 03/06/2024 Other Pt advised [facility] has a provider monotype caster 02/10, to call main clinic number, , will be forwarded to an answering service then connected with the provider. Call if condition worsens or patient has questions. V/U. 04/04/2024 Other Pt advised [facility] has a provider monotype caster 02/10, to call main clinic number, , will be forwarded to an answering service then connected with the provider. Call if condition worsens or patient has questions. V/U. Discussed elevated BMI. Stressed need to increase [...] daily each. Advised to limit calories to 0070-6526/day. Will reevaluate weight each visit. Advised smoking cessation. Pt precontemplative. Declines specific intervention. Discussed benefits of quitting along with tips for cessation. Encouraged to contact [address] [place] [address] for further information and coaching assistance. V/U. Patient has lost 21 pounds in past 3 months continue to encourage weight loss 05/01/2024 Other Pt advised [facility] has a provider monotype caster 02/10, to call main clinic number, , will be forwarded to an answering service then connected with the provider. Call if condition worsens or patient has questions. V/U. Discussed elevated BMI. Stressed need to increase [...] daily each. Advised to limit calories to 4939-4123/day. Will reevaluate weight each visit. Advised smoking cessation. Pt precontemplative. Declines specific intervention. Discussed benefits of quitting along with tips for cessation. Encouraged to contact [address] [place] [address] for further information and coaching assistance. V/U. Explained that depression is a medical illness that needs to be treated. Explained that the effect of antidepressants may not seen until 3-4 after the med is started. Instructed pt to stop the medication and come to office or ER if she experiences increased depression, worsening moods or increased thoughts of suicide or homicide. Discussed additional of exercise to daily routine as well as discussed benefits of counseling as well. Will reevaluate effectiveness of med in 4 weeks.Overall healthy lifestyle to promote good mental health 06/05/2024 Other Patient informed that [facility] has oncall providers available 02/10 by dialing regular clinic number. Also informed patient to sign up for the patient portal and explained process and advantages of using the portal including communication with provider, refill requests, review labs, etc. Pt also reminded to bring all medications to each visit. Also reviewed current CDC and state guidelines and recommendations for preventing spread of COVID19. V/U 07/03/2024 Other Patient informe d that [facility] has oncall providers available 02/10 by dialing regular clinic number. Also informed patient to sign up for the patient portal and explained process and advantages of using the portal including communication with provider, refill requests, review labs, etc. Pt also reminded to bring all medications to each visit. 08/01/2024 Other Patient informed that [facility] has oncall providers available 02/10 by dialing [...] well. Will make appropriate referral to social economist if pt agrees. Should exercise 20-30min 4-5 days/week, may begin with walking, increase as tolerated. If able, at least 2 days/week of resistance exercises. Suggestions provided for local exercise opportunities. Recommended elimination of sugar sweetened beverages from diet and increase amt of fruits and vegetables consumed daily; 5 servings daily each. Advised to limit calories to 1876-2241/day. Will reevaluate weight each visit. Plan Of Treatment Pending Test Test Name Order Date MRI : Lumbosacral Spines 05/09/2022 DRUG SCREEN: URINE 12 PANEL 02/08/2021 [facility] Comprehensive 08/20/2019 Urinalysis, Complete 02/10/2020 [facility] SELECT 07/29/2021 [facility]XAS[facility] SELECT 10/25/2021 TOXAS[facility]RE SELECT 02/08/2021 TOXASSURE SELECT 01/11/2021 FIT DNA 02/09/2023 Hepatitis B Surface Antigen 05/07/2019 [facility] 01/10/2024 [facility] 06/05/2024 [facility] 07/03/2024 [facility] 08/01/2024 [facility] 06/30/2022 [facility] 08/01/2022 [facility] 11/17/2022 [facility] 03/14/2022 Next Appt Details Provider Name:Inessa Ruiz, 08/29/2024 11:30:00 AM, [address] [facility] [place], [address], Provider Name:Tarik Marquez EXECUTIVE VICE PRESIDENT AND CHIEF OPERATING OFFICER-Arboriculturist, 09/26/2024 11:30:00 AM, [address] [facility] [place], [address], Provider Name:Martha Bermeo , 09/26/2024 11:30:00 AM, [facility] [place], [address], Insurance Providers Payer Name Payer Address Payer Phone Subscriber Number Group Number Insured Name Patient Relationship to Insured Coverage Start Date Coverage End Date [facility] [address] [place] [address] [id number] [place] Gama Pitts Self - patient is the insured [facility] [address] [place] [address] [id number] Gama Pitts Self - patient is the insured Medical (General) History Medical History History ICD Code Hypertension Opiod Dependency Surgical History Surgery Date(Month/Year) Left ACL repair 2001
--- NOTE | 2024-08-19 10:47 | ECG_ITS ---
APPROVED REPORT Exam: Resting ECG HR:73 bpm ECG Measurements Heart Rate 73 AXES SC 171 P 60 QRSd 101 QRS 81 QT 355 T 62 QTc 381 Conclusion SINUS RHYTHM NORMAL ECG UNCONFIRMED REPORT Electronically signed by : Rodney Rodríguez MD 08/21/2024 08:44:27
[2024-08-19 10:49] VITALS: BMI 38.1
[2024-08-19 11:03] LABS: Basophils % 0.5 % (0.1-2.0); Eosinophils # 0.4 Kmm3 (0.0-0.4); Eosinophils % 5.5 % (0.1-12.0); Hematocrit 34.6 % (42.0-52.0); Hemoglobin 11.9 g/dL (14.1-18.0); Immature Granulocytes # 0.02 10^3uL; Immature Granulocytes % 0.3 %; Lymphocytes # 2.4 K/mm3 (0.7-4.5); Mean Corpuscular HGB Conc 34.4 g/dL (31.8-35.4); Mean Corpuscular Hemoglobin 30.4 pg (27.0-31.2); Mean Corpuscular Volume 88.3 fl (80-94); Mean Platelet Volume 10.8 fl (7.4-10.4); Monocytes # 0.9 K/mm3 (0.1-1.0); Monocytes % 11.9 % (1.7-9.3); Neutrophils % 50.8 % (37.0-80.0); Nucleated Red Blood Cells # 0 10^3/uL; Nucleated Red Blood Cells % 0 %; Platelet Count 230 K/mm3 (142-424); Red Blood Count 3.92 M/mm3 (4.60-6.20); Red Cell Distribution Width 14.4 % (11.5-17.5); Red Cell Distribution Width-SD 45.7 fL; White Blood Count 7.9 K/mm3 (4.8-10.8)
[2024-08-19 11:08] LABS: Anion Gap 11.8 mEq/L (5-15); Blood Urea Nitrogen 39 mg/dl (9-20); Calcium 9.8 mg/dl (8.4-10.2); Carbon Dioxide 23 mmol/L (22.0-30.0); Chloride 100 mmol/L (98-107); Creatinine Clearance Estimated 76 mL/min (50-200); Estimated Glomerular Filt Rate 31 ml/min (>60); GFR (African American) 38 ML/MIN (>60); Glucose 119 mg/dl (74-100); Potassium 3.8 mmoL/L (3.5-5.1); Sodium 131 mmol/L (136-145)
== END 2024-08-19 23:59 | disposition home or self-care (01) ==
LOC: PREOP 10:07
PROVIDERS: PCP Registered Nurse; Visit Provider Internal Medicine Pulmonary Disease
DX: Z01.810 Encounter for preprocedural cardiovascular examination (principal); Z01.812 Encounter for preprocedural laboratory examination
CPT/HCPCS: 80048; 85025; 93005

== ENCOUNTER 2024-08-25 08:58 | Day surgery (SDC) | payer BC, SELFPAY ==
[2024-08-19 13:27] VITALS: BMI 38.1
[2024-08-25] VITALS (9 sets, daily range): BP systolic 102–131; BP diastolic 53–68; PULSE 67–81; RESP 15–22; TEMP 36.1–36.4; O2SAT 94–97
--- NOTE | 2024-08-25 | XR_ITS ---
FINAL REPORT CLINICAL HISTORY: bronch in OR 2.0 min 55.97 mGy COMPARISON: None FINDINGS: FLUOROSCOPY LESS THAN 1 HOUR HISTORY: Intraoperative bronchoscopy FINDINGS: Fluoroscopic guidance was provided for bronchoscopy. 2 spot films were obtained. 2 minutes of fluoroscopy time were used, with a dosage of 55.97 mGy. IMPRESSION: As above. Reviewed, Interpreted and Dictated by Man Shah MD Transcribed by Amira Cote Authenticated and [facility]
[2024-08-25] MEDS: LACTATED RINGERS 1000ML 1,000 ML 25 ML IV (09:49)
--- NOTE | 2024-08-25 11:55 | EXP.ANES.I ---
[facility] Anesthesia Record Part I Anesthesia Record I Intake, IV Amount: 900 Hydration: Adequate Estimated blood loss (mL): 2 Urine output (mL): 0 Blood Products used (#): none Blood Pressure: 114/65 SaO2: 95 Pulse Rate: 81 Airway Patency: Patent Respiratory Rate: 22 Temperature: 97.5 F Patient is:: Drowsy and Stable Stable to PACU at:: 11:50
--- NOTE | 2024-08-25 12:04 | XR_ITS ---
FINAL REPORT CLINICAL HISTORY: post bronch COMPARISON: None FINDINGS: A single view of the chest was obtained. There is mild cardiomegaly. The mediastinum is normal. The lungs are underinflated. Atelectasis is noted at the bilateral lung bases, right greater than left. There is a trace right pleural effusion. There is no pneumothorax. There is no osseous abnormality. IMPRESSION: Atelectasis, right greater than left, with a trace right pleural effusion. No pneumothorax. Reviewed, Interpreted and Dictated by Man Shah MD Transcribed by Samantha Britton Authenticated and [facility]
--- NOTE | 2024-08-25 12:27 | SUR.PHASEI ---
1221- Patient's VSS and no C/O pain. Pt. sitting up in stretcher requesting drink. Transported to post op via stretcher and report given to BETHANY Kirkland.
--- NOTE | 2024-08-25 12:33 | EXP.BRONCH.N ---
Procedure: Date: 08/25/24 Patient Date of :: 1970 Procedure Performed:: Bronchoscopy, airway examination, bronchoalveolar lavage, endobronchial and transbronchial lung biopsy, endobronchial ultrasound-guided fine-needle aspiration of lymph node Indications:: Lymphadenopathy. Lung collapse. Performing Provider:: Bhakti Hall MD Referring Provider:: : Rosales,June Sedation:: General anesthesia Procedure:: Bronchoscopy, airway examination, bronchoalveolar lavage, endobronchial and transbronchial lung biopsy, endobronchial ultrasound-guided fine-needle aspiration of lymph node: A clean EBUS bronchoscopy was advanced to the ET tube and lymph node surveillance was performed. Patient noted to have lymphadenopathy at station 10L and 10R. A total of 6 passes were spent at station 10L, with only scant amount of black tissue obtained that was sent in CytoLyt for cytopathologic examination. A total of 5 passes were performed at station 10R and the resultant adequate sample was sent in CytoLyt for cytopathologic examination. EBUS bronchoscopy was retracted and a clean DIAGNOSTIC bronchoscopy was advanced through the ET tube and airways were examined up to subsegmental bronchi. Near complete occlusion of the right middle lobe bronchus noted. Significant narrowing of the left lower lobe anterior segment bronchi also noted. Biopsy forceps could not be passed through the right middle lobe airway. Despite narrowing, biopsy forceps could be passed through the left lower lobe anterior segment bronchi. Airways otherwise appeared grossly normal, no evidence of mucoid secretions, mucous plugging active bleeding/old blood clots noted. Bronchoalveolar lavage was performed in the RIGHT MIDDLE LOBE with instillation of 60 cc normal saline with return of 15 cc back. BAL fluid was sent for bacterial fungal and AFB stain and cultures. Cell count differential was not sent for the BAL fluid given scant return Endobronchial biopsies performed the RIGHT MIDDLE LOBE bronchi and were sent in formalin for cytopathologic examination. Transbronchial biopsy was performed in the RIGHT MIDDLE LOBE with a total of 5 biopsies performed, 3 biopsy specimens were sent in formalin for cytopathologic examination. The other 2 biopsy samples, were sent one each in two separate normal saline specimen cups for bacterial fungal and AFB stain cultures. Transbronchial biopsy was also performed in the LEFT LOWER LOBE anterior segment, total of 3 biopsies were performed and were sent in formalin for cytopathologic examination. No cultures were sent from LEFT LOWER LOBE transbronchial biopsy. Special request was also made for the pathologist to evaluate for AFB and fungal organisms on the cytopathologic examination for all specimens obtained for cytopathology Patient tolerated the procedure with no immediate acute complications. We will follow the patient in pulmonary clinic in 7 to 10 days. Findings:: Please see the procedure note. Recommendations:: Postoperative bronchoscopy instructions Follow in pulmonary clinic in 5-7 days Complications:: No acute immediate complications Estimated blood obtained (mL): 5
[2024-08-27 10:10] LABS: POC Glucose,Bedside 100 (70-110)
--- NOTE | 2024-08-28 10:46 | P.PNANES_ITS ---
[facility] Anesthesia Record Part II Anesthesia Record Part II Discharge Time: 12:20 Destination: located within [facility] PACU nurse assessment reviewed?: Yes Patient Condition:: Good Anesthesia Complications:: None Swallowing reflex intact?: Yes Airway Patency: Patent Cyanosis?: No Blood Pressure: 105/58 SaO2: 94 Respiratory Rate: 16 Pulse Rate: 76 Temperature: 97.1 F Mental Status: Alert & Oriented Pain level:: 0 Nausea and/or vomitting:: None Intake, IV Amount: 1,200 Hydration: Adequate
[2024-08-28 10:47] VITALS: BP 105/58; PULSE 76; RESP 16; TEMP 36.2; O2SAT 94
== END 2024-08-25 12:49 | disposition home or self-care (01) ==
PROVIDERS: PCP Registered Nurse; Visit Provider Internal Medicine Pulmonary Disease
PROC: BB4BZZZ Ultrasonography of Pleura (ICD-10-PCS; CPT 31624; principal; 2024-08-25 10:00)
DX: R91.8 Other nonspecific abnormal finding of lung field (principal); J98.11 Atelectasis; R59.0 Localized enlarged lymph nodes; Z57.5 Occupational exposure to toxic agents in other industries; Z79.899 Other long term (current) drug therapy; E11.9 Type 2 diabetes mellitus without complications; G47.33 Obstructive sleep apnea (adult) (pediatric); J44.9 Chronic obstructive pulmonary disease, unspecified
CPT/HCPCS: 31624; 31625; 31628; 31632; 31652; 71045; 82962; 87070; 87101; 87116; 87186; 87205; J1100; J2003; J2250; J2405; J2704; J3010; J7120

== ENCOUNTER 2025-01-02 07:24 | Outpatient (CLI) | payer BC, SELFPAY ==
--- NOTE | 2025-01-02 07:26 | CT_ITS ---
FINAL REPORT CLINICAL HISTORY: COPD, dizzy, soa, x 8 months COMPARISON: CT of the chest with and without contrast 08/02/2023 FINDINGS: CT CHEST without contrast COMPARISON: 08/01/2024. TECHNIQUE: Axial CT without contrast This study was performed with techniques to keep radiation doses as low as reasonably achievable, (ALARA). Individualized dose reduction techniques using automated exposure control or adjustment of mA and/or kV according to the patient's size were employed. FINDINGS: There is persistent partial collapse of the right middle lobe. Endobronchial lesion is not excluded given narrowing of the central right middle lobe bronchus. Scattered scarring is present. A right lower lobe nodule on image 118 measures 7 mm, unchanged. There is redemonstration of a tubular structure in the central right lower lobe best seen on coronal imaging. This measures 32 mm in length and 14 mm in diameter. This does show questionable subtle enhancement on the prior exam, and could represent a chronic obstructed bronchus. Right hilar adenopathy seen on prior exam is difficult to appreciate without contrast. No pleural effusion is present. IMPRESSION: 1. Chronic changes of right middle lobe collapse with a tubular masslike density of the right lower lobe. Both abnormalities could be related to bronchial lesions. Bronchoscopic evaluation is recommended if this has not been recently performed. No significant change is present compared to the prior exam. This study was performed using automated techniques to achieve radiation exposure as low as reasonably achievable Reviewed, Interpreted and Dictated by Jordan Gentile MD Transcribed by Amira Cote Authenticated and [facility]
--- OUTSIDE RECORDS SUMMARY | 2025-01-02 07:27 | XMS_ITS | Clinical Summary ---
Author Organization [facility] Address [address] [place] [address] Care Team Providers Care Golf Range Attendant Name Role Phone Rosales, June Primary Care Provider [phone] Allergies No known active allergies Medications aspirin 81 MG EC tablet Take 1 tablet by mouth Daily With Breakfast. 02/28/2024 Active Blood Glucose Monitoring Suppl (Accu-Chek Guide Wa) w/Device kit TEST BLOOD SUGAR DAILY DIRECTED 01/03/2024 Active buprenorphine-n aloxone (SUBOXONE) 8-2 MG per SL tablet Place 2 tablets under the tongue Daily. 03/07/2024 Active glucose blood test strip 2 (Two) Times a Day. test blood sugar 01/01/2024 Active hydroCHLOROthia zide 25 MG tablet Take 1 tablet by mouth Every Morning. 02/28/2024 Active ibuprofen (ADVIL,MOTRIN) 800 MG tablet Take 1 tablet by mouth Every 6 (Six) Hours As Needed. 02/06/2024 Active Accu-Chek Softclix Lancets lancets USE TO TEST BLOOD SUGAR TWICE DAILY 01/01/2024 Active Mounjaro 10 MG/0.5ML solution auto-injector INJECT 10 MG UNDER THE SKIN ONCE WEEKLY DIRECTED 02/18/2024 Active escitalopram (LEXAPRO) 10 MG tablet Take 1 tablet by mouth Daily. 07/10/2024 Active lisinopril (PRINIVIL,ZESTR IL) 20 MG tablet Take 1 tablet by mouth Daily. 90 tablet 3 07/31/2024 Active Active Problems Problem Noted Date Diagnosed Date CAD (coronary artery disease) 03/28/2024 Abnormal stress test 03/19/2024 Family History Medical History Relation Name Comments Diabetes Mother Hypertension Mother Relation Name Status Comments Father Mother Alive Social History Tobacco Use Types Packs/Day Years Used Date Smoking Tobacco: Never Smokeless Tobacco: Current Snuff Tobacco Cessation:Ready to Q uit: Not Asked; Counseling Given: Not Answered Alcohol Use Standard Drinks/Week Comments Yes 0 (1 standard drink = 0.6 oz pur e alcohol) Occasionally AUDIT-C Answer Date Recorded Q1: How often do you have a drink containing alc ohol? Monthly or less 03/28/2024 Q2: How many drinks containi ng alcohol do you have on a typical day when you are drinking? 1 or 2 03/28/2024 Q3: How often do you have si x or more drinks on one occasion? Never 03/28/2024 Abuse Screen Answer Date Recorded Feels Unsafe at Home or Work/School no 03/28/2024 Feels Threatened by Someone no 03/12 Does Anyone Try to Keep You From Having Contact with Others or Doing Things Outside Your Home? no 03/28/2024 Physical Signs of Abuse Present no 03/28/2024 Housing Stability Answer Date Recorded Current Living Arrangements home 03/12 Potentially Unsafe Housing Conditions Not on adam e 03/28/2024 Disabilities Answer Date Recorded Difficulty Concentrating, Remembering or Making Decisions no 03/28/2024 Difficulty Managing Errands Independently no 03/28/2024 PHQ-2 Answer Date Recorded Patient Health Questionnaire-2 Score 0 03/28/2024 Sex and Gender Information Value Date Recorded Sex Assigned at Not on file Legal Sex Male 11:31 AM EDT Gender Identity Not on file Sexual Orientation Not on file Last Filed Vital Signs Vital Sign Reading Time Taken Comments Blood Pressure 110/68 07/31/2024 2:14 PM EDT Pulse 76 07/31/2024 2:14 PM EDT Temperature 37.1 C (98.7 F) 03/28/2024 9:35 AM EST Respiratory Rate 14 03/28/2024 12:10 PM EST Oxygen Saturation 95% 07/31/2024 2:14 PM EDT Inhaled Oxygen Concentration - - Weight 136 kg (299 lb) 07/31/2024 2:14 PM EDT Height 182.9 cm (6') 07/31/2024 2:14 PM EDT Body Mass Index 40.55 07/31/2024 2:14 PM EDT Plan of Treatment Health Maintenance Due Date Last Done Comments DIABETIC EYE EXAM 1981 DIABETIC FOOT EXAM 1981 Hepatitis B (1 of 3 - 19+ 3-dose series) 1990 Pneumococcal Vaccine 50+ (1 of 2 - PCV) 1990 TDAP/TD VACCINES (1 - Tdap) 1990 COLOGUARD 02/06/2016 COLON CANCER SCREENING 5 YEAR SIGMOIDOSCOPY 02/06/2016 COLONOSCOPY 02/06/2016 COLORECTAL CANCER SCREENING 02/06/2016 CT COLONOGRAPHY 02/06/2016 FECAL OCCULT BLOOD TEST 02/06/2016 FIT Testing (1 year) 02/06/2016 ZOSTER VACCINE (1 of 2) 2021 ANNUAL PHYSICAL 03/07/2024 HEMOGLOBIN A1C 03/07/2024 HEPATITIS C SCREENING 03/07/2024 INFLUENZA VACCINE 10/10/2024 01/10/2024 LIPID PANEL 03/10/2025 03/10/2024 URINE MICROALBUMIN-CREATININE RATIO (uACR) 03/10/2025 03/10/2024 Procedures Procedure Name Priority Date/Time Associated Diagnosis Comments MICROALBUMIN / CREATININE URINE RATIO Routine 03/10/2024 3:03 PM EST Mixed hyperlipidemia LIPID PANEL Routine 03/10/2024 3:03 PM EST Mixed hyperlipidemia from Last 3 Months or Most Recently Relevant to Health Maintenance Results * Microalbumin / Creatinine Urine Ratio - Urine, Clean Catch (03/10/2024 3:03 PM EST) Microalbumin/C reatinine Ratio 11.0 0.0 - 29.0 mg/g 03/11/2024 12:05 AM EST [facility] Creatinine, Urine 354.3 mg/dL 03/11/2024 12:05 AM EST [facility] Microalbumin, Urine 3.9 mg/dL 03/11/2024 12:05 AM EST [facility] Urine Urine specimen obtained by clean catch procedure / Unknown Collection / Unknown 03/10/2024 3:03 PM EST 03/10/2024 3:03 PM EST Luiz Ferguson MD URINE ORDERABLES Final Result [facility]
[address] [place] [address], * Lipid Panel (03/10/2024 3:03 PM EST) Total Cholesterol 161 0 - 200 mg/dL 03/10/2024 11:35 PM EST [facility] Triglycerides 74 0 - 150 mg/dL 03/10/2024 11:35 PM EST [facility] HDL Cholesterol 50 40 - 60 mg/dL 03/10/2024 11:35 PM EST [facility] LDL Cholesterol 97 0 - 100 mg/dL 03/10/2024 11:35 PM EST [facility] VLDL Cholesterol 14 5 - 40 mg/dL 03/10/2024 11:35 PM EST [facility] LDL/HDL Ratio 1.92 03/10/2024 11:35 PM EST [facility] Blood Venipuncture / Unknown 03/10/2024 3:03 PM EST 03/10/2024 3:03 PM EST Narrative [facility] - 03/10/2024 11:35 PM EST Cholesterol Reference Ranges (U.S. Department of Health and Human Services ATP III Classifications) Desirable <200 mg/dL Borderline High 200-239 mg/dL High Risk >240 mg/dL Triglyceride Reference Ranges (U.S. Department of Health and Human Services ATP III Classifications) Normal <150 mg/dL Borderline High 150-199 mg/dL High 200-499 mg/dL Very High >500 mg/dL HDL Reference Ranges (U.S. Department of Health and Human Services ATP III Classifications) Low <40 mg/dl (major risk factor for CHD) High >60 mg/dl ('negative' risk factor for CHD) LDL Reference Ranges (U.S. Department of Health and Human Services ATP III Classifications) Optimal <100 mg/dL Near Optimal 100-129 mg/dL Borderline High 130-159 mg/dL High 160-189 mg/dL Very High >189 mg/dL us Luiz Ferguson MD LAB BLOOD ORDERABLES Final Res ult [facility]
[address] [place] [address], [place] [phone] from Last 3 Months or Most Recently Relevant to Health Maintenance Insurance [facility] PPO Advance Directives * CPR (Attempt to Resuscitate) (Latest Code Status on File) Date Activated Date Inactivated Comments 03/28/2024 12:46 PM 03/28/2024 6:30 PM Question Answer Comments Code Status (Patient has no pulse and is not breathing): CPR (Attempt to Resuscitate) Medical Interventions (Patie nt has pulse or is breathing): Full Support Care Teams Golf Range Attendant Relationship Specialty Start Date End Date June, [address] [place] [id number] PCP - General Nurse Practitioner 02/27/24
== END 2025-01-02 23:59 | disposition home or self-care (01) ==
LOC: RAD 07:25
PROVIDERS: PCP Registered Nurse; Visit Provider Internal Medicine
DX: J98.19 Other pulmonary collapse (principal); R91.8 Other nonspecific abnormal finding of lung field; J44.9 Chronic obstructive pulmonary disease, unspecified
CPT/HCPCS: 71250

== ENCOUNTER 2025-01-28 12:09 | Outpatient (CLI) | payer BC, SELFPAY ==
--- OUTSIDE RECORDS SUMMARY | 2024-11-25 05:45 | XMS_ITS ---
Author Organization CHAYO CARBONE MD Address [address] [place] [address] Care Team Providers Care Invoice Control Clerk Name Role Phone RERE June Primary Care Provider CHAYO Black [phone] REASON FOR VISIT pft Vital Signs Temperature 97.3 degrees Fahrenheit 11/26/19 25 Blood pressure systolic 123 mm Hg 11/26/19 25 Blood pressure diastolic 71 mm Hg 025 Height 76 in 11/25/2024 Weight 288 lbs 11/25/2024 BMI 35.05 kg/m2 11/25/2024 Oximetry 94 11/25/2024 Encounters Encounter Location Date Provider Diagnosis CHAYO CARBONE MD [address] [place] [address] 11/25/2024 [facility] CARBONE Plan Of Treatment Next Appt Details Provider Name:CHAYO Stevens, 02/10/2025 03:00:00 PM, [address], [address], [place], [address], Progress Notes * MAC RODRIGUEZOB:1969 (54 yo M)Acc No.[id number]:11/25/2024 Progress Notes Patient: Merlyn RANKINFELI COLIN Provider: Ghazal Carbone MD :1970 A ge:54 Y S ex:Male Date:11/25/2024 Address:[address] [place], [place] Pcp:ROMIE JERNIGAN APRN Subjective: * Chief Complaints: * 1 . Pft. * Medical History: Objective: * Vitals: W t: 288, Ht: 76, Temp:97.3, HR:87, RESP:18, BP:123/71, Oxygen sat %:94, BMI:35.05. Assessment: Plan: * Treatment: * Procedure Codes: 9 4060 [place]I[address] [place], [address] DETERMINATION OF LUNG VOLUMES, 41142 DIFFUSING CAPACITY * Images: * Electronic signature of HUI CARBONE MD on 01/28/2025 at 01:05 PM EST Sign off status: Pending * Provider: Ghazal Carbone MD Date: 0 11/25/2024 Generated for Hanny sow/Liseth/Chandni on: 03/30/2024 01:05 PM EST
--- OUTSIDE RECORDS SUMMARY | 2024-11-25 08:00 | XMS_ITS ---
Author Organization ASYA CARBONE MD Address [address] [place] [address] Care Team Providers Care Reinforcing Bar Setter Name Role Phone RERE KENJune Primary Care Provider ASYA Black Unavailable [phone] Allergies No Known Allergies REASON FOR VISIT PULMONARY CONSULT REFERRED BY LAURE JERNIGAN APRN FOR CHRONIC SOA Medications Medication SIG (Take, Route, Frequency, Duration) Notes Start Date End Date Status Mounjaro 15 MG/0.5ML INJECT 1 PEN SUBCUTANEOUSLY ONCE A WEEK Subcutaneous; Duration: 84 Days Active Furosemide 20 MG 1 tablet Orally Once a day Active Buprenorphine HCl-Naloxone HCl 8-2 MG 2 TABLETS UNDER THE TONGUE AND ALLOW TO DISSOLVE SUBLINGUAL ONCE A DAY Sublingual; Duration: 28 Days Active hydroCHLOROthiazide 25 MG TAKE 1 TABLET BY MOUTH EVERY MORNING Oral; Duration: 90 Days Active Spiriva Respimat 2.5 MCG/ACT 2 puffs Inh alation Once a day; Duration: 30 days 11/25/2024 01/23/2025 Active Sildenafil Citrate 50 MG TAKE 1 TABLET B Y MOUTH 1 HOUR BEFORE SEXUAL ACTIVITY DO NOT TAKE MORE THAN 1 IN 24 HOURS Oral; Duration: 30 Days Active Lisinopril 20 MG 1 tablet Oral; Duration: 90 days Active Ibuprofen 800 MG TAKE 1 TABLET BY COLLEEN TWICE DAILY NEEDED WITH FOOD FOR PAIN Oral; Duration: 30 Days Active PARoxetine HCl 20 MG TAKE 1 TABLET BY MO UTH ONCE DAILY Oral; Duration: 90 Days Active Problems Problem Type SNOMED Code ICD Code Onset Dates Problem Status W/U Status Risk Notes Problem COPD - Chronic obstructive pulmonary disease (82435799) COPD (J44.9) Active confirmed Vital Signs Temperature 97.3 degrees Fahrenheit 11/26/19 25 Blood pressure systolic 123 mm Hg 11/26/19 Blood pressure diastolic 71 mm Hg 025 Height 76 in 11/25/2024 Weight 288 lbs 11/25/2024 BMI 35.05 kg/m2 11/25/2024 Oximetry 94 11/25/2024 Encounters Encounter Location Date Provider Diagnosis ASYA CARBONE MD [address] [place] [address] 11/25/2024 ASYA CARBONE COPD J44.9 ; ATELECTASIS J98.11 ; Occupational exposure to dust Z57.2 ; Sleep apnea, unspecified G47.30 ; Unspecified malignant neoplasm of skin, unspecified C44.90 and Obesity, unspecified E66.9 Assessments Encounter Date Diagnosis (ICD Code) Assessment Notes Treatment Notes Treatment Clinical Notes Section Notes 11/25/2024 COPD (ICD-10 - J44.9) This is a 54 year old white male, who has no history of tobacco abuse and significant occupational exposure. He presents with above CT findings & dyspnea . His PFT's on 12/04 reveal an FEV1 66%, FVC 79 %, FEV1/FVC 67 , TLC 86%, DLCO 85. His CT Chest on 08/03 reveals tubular structure RLL, RML partial collapse. The patient has RML atelectasis bronchoscopy/ path/ cytology reports are requested. Based on the current guidelines, the patient has mild GOLD Stage 2 COPD. 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 Weight loss was advised, he has lost 50 lbs on Monjuaro. He has minimalReflux precautions were discussed and a handout was given to patient. He has comorbid conditions. He is not up to date on his flu vaccine. Given the atelectasis a CT chest needs to repeated. Thank you for asking me to see this patient in consultation.Hist ory obtained by Ashley Pat APRN. Pt seen and this note reviewed and edited by Dr. Asya Carbone. 11/25/2024 ATELECTASIS (ICD-10 - J98.11) 11/25/2024 Occupational exposure to dust (ICD-10 - Z57.2) 11/25/2024 Sleep apnea, unspecified (ICD-10 - G47.30) 11/25/2024 Unspecified malignant neoplasm of skin, unspecified (ICD-10 - C44.90) 11/25/2024 Obesity, unspecified (ICD-10 - E66.9) 11/25/2024 Other Plan Of Treatment Medication Medication Name Sig Start Date Stop Date Notes Spiriva Respimat 2.5 MCG/ACT 2 puffs Inh alation Once a day; Duration: 30 days 11/25/2024 01/23/2025 Treatment Notes Assessment Notes COPD This is a 54 year ol d white male, who has no history of tobacco abuse and significant occupational exposure. He presents with above CT findings & dyspnea . His PFT's on 12/04 reveal an FEV1 66%, FVC 79 %, FEV1/FVC 67 , TLC 86%, DLCO 85. His CT Chest on 08/03 reveals tubular structure RLL, RML partial collapse. The patient has RML atelectasis bronchoscopy/ path/ cytology reports are requested. Based on the current guidelines, the patient has mild GOLD Stage 2 COPD. 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 Weight loss was advised, he has lost 50 lbs on Monjuaro. He has minimalReflux precautions were discussed and a handout was given to patient. He has comorbid conditions. He is not up to date on his flu vaccine. Given the atelectasis a CT chest needs to repeated. Thank you for asking me to see this patient in consultation.History obtained by Ashley Pat APRN. Pt seen and this note reviewed and edited by Dr. Asya Carbone. Pending Test Test Name Order Date CT chest without contrast 11/25/2024 Next Appt Details Follow Up: [address] ches t, Reason: Provider Name:ASYA Stevens, 02/10/2025 03:00:00 PM, [address], [address], [place], [address], Progress Notes * MAC RODRIGUEZOB:1969 (54 yo M)Acc No.[id number]:11/25/2024 Progress Notes Patient: COLIN MILES Provider: Ghazal Carbone MD :1970 A ge:54 Y S ex:Male Date:11/25/2024 Address:[address] [id number] Pcp:LAURE JERNIGAN APRN Subjective: * Chief Complaints: * 1 . PULMONARY CONSULT REFERRED BY LAURE JERNIGAN APRN FOR CHRONIC SOA. * HPI: P ulmonology: Pulmonology D ate of Last Spirometry: 0 11/25/2024, F EV1= 6 6, F EV1/FVC= 6 7. Dear Laure Jernigan APRN, Thank you for sending this patient for pulmonary consultation services. As you will recall, this is a 54 year old white male. He is a nonmoker. He presents today with chronic dyspnea. As a baseline, the patient states that he has chronic dyspnea. This is ongoing for > 1 year.The patient states that he has minimal dry cough. He admits to frequent wheezing. He denies any hemoptysis. He has chronic pleuritic pain and follows cardiology in [place] at [facility]. He denies MDI's or nebs. He denies any home O2. He reports sleep apnea but had no coverage for CPAP. He denies any fever or chills. He denies any chronic low grade fever or night sweats, but he complains of general malaise. He is on Mounjaro for a year with decreased appetite and weight loss of 50 pounds He can ambulate approximately 50 feet on level ground and 10 feet uphill before having to stop due to dyspnea. He denies any asthma as a child, or frequent respiratory infections or hospitalizations as a child. He has no history of previous intubation. He has pedal edema; is on Lasix daily. He reports he had a black lung exam in 08/03 and was told he had a blockage . He had a bronchoscopy 09/03 at [facility] and was told a partial blockage has been there so long the other lung has made up for it . He is on Lisinopril for many years. He is on Suboxone daily. He has history of Melanoma left arm in 1999. He reports the area was excised and denies chemotherapy or radiation. FluVax: 2023fall P neumoVax:denies C OVID-Vax: total x1? RSVvax: denies Bronchoscopy 09/03 at [facility] - partial blockage RML, TBB, TBNA, Lavage brushing (-) for malignancy PFT: 12/04: FEV1 66%, FVC 79 %, FEV1/FVC 67 , TLC 86%, DLCO 85% CXR: CT Chest:08/03: tubular structure RLL, RML partial collapse sleep study: 03/04: JAYSHREE 6.5 mild LILIBETH. * ROS: G eneral: Fever N o. M alaise N o. F atigue N o. W eight Loss N o. N ight Sweats N o. E yes: Discharge N o. R edness N o. S ub Conjuntival Hemorrhage N o. I tching, watery N o. R robin: Dyspnea Yes. C ough Yes. W heezing Yes. H oarseness N o. C ongestion N o. H emoptysis N o. G I: Vomiting N o. D iarrhea N o. C onstipation N o. P oor Appetite N o. A bdominal Pain N o. D ysphagia N o. H ematemesis N o. n o B lack/tarry stool. R eflux N o. M usculoskeletal: Joint Pain N o. J oint Swelling N o. M uscle Pain N o. G eneralized Weakness N o. N eurology: Seizure N o. D izziness N o. H eadache N o.?Syncope N o. C onfusion N o. N umbness/Tingling N o. P hotophobia N o. E NT: Sneezing N o. R unny Nose N o. S ore Throat?No. W atery Eyes N o. N osebleeds N o. O ral Thrush N o. C ardiovascular: Chest Pain N o. P alpitations N o. D izziness?No. D iaphoresis N o. G enitourinary: Burning N o. F requency N o. H ematuria N o. S kin: Rash N o. P etichiae N o. P sych: Depression N o. E xercise Intolerance N o. A nxiety N o. N ervousness N o. H em/Lymph: Lymph Node Enlargement N o. B ruising N o. B leeding N o. * Medical History: S kin Cancer, HTN, Type 2 Diabetes. * Surgical History: L eft ACL Repair , [place] Teeth Extraction . * Family History: F ather: . M other: alive, diagnosed with Diabetes. P aternal Grand Mother: diagnosed with Cancer. M aternal Grand Father: diagnosed with Heart Disease. Sig for: Diabetes, Cholesterol, Heart Disease, HTN, Lung Disease, grandmother- lung Cancer was smoker. 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 * Medications: T aking Furosemide 20 MG Tablet 1 tablet Orally Once a day , Taking Buprenorphine HCl-Naloxone HCl 8-2 MG Tablet Sublingual 2 TABLETS UNDER THE TONGUE AND ALLOW TO DISSOLVE SUBLINGUAL ONCE A DAY Sublingual , Taking Mounjaro 15 MG/0.5ML Solution Auto-injector INJECT 1 PEN SUBCUTANEOUSLY ONCE A WEEK Subcutaneous , Taking Sildenafil Citrate 50 MG Tablet TAKE 1 TABLET BY MOUTH 1 HOUR BEFORE SEXUAL ACTIVITY DO NOT TAKE MORE THAN 1 IN 24 HOURS Oral , Taking Ibuprofen 800 MG Tablet TAKE 1 TABLET BY MOUTH TWICE DAILY NEEDED WITH FOOD FOR PAIN Oral , Taking PARoxetine HCl 20 MG Tablet TAKE 1 TABLET BY MOUTH ONCE DAILY Oral , Taking Lisinopril 20 MG Tablet 1 tablet Oral , Taking hydroCHLOROthiazide 25 MG Tablet TAKE 1 TABLET BY MOUTH EVERY MORNING Oral , Medication List reviewed and reconciled with the patient * Allergies: N .K.D.A. Objective: * Vitals: W t: 288, Ht: 76, Temp:97.3, HR:87, RESP:18, BP:123/71, Oxygen sat %:94, BMI:35.05. * Examination: G eneral Examination: general appearence a lert and oriented, in no acute distress, pleasant. F SERENA: n on-plethoric, acyanotic, no nasal flaring. E YES: c onjunctiva clear. H EENT: u nremarkable, nasal mucosa, turbinates. / n ormal, normal dentition. N BELINDA/THYROID: n o lymphadenopathy, supple, no thyromegaly, no thyroid abnormality, no accessory muscle use, no pallor, no icterus. C ARDIOVASCULAR: r egular rate and rhythm, normal S1S2, no murmurs, no gallops or rubs, normal S1S2. C HEST: s ymmetrical, AP diameter normal. R ESPIRATORY: c lear to auscultation and percussion, good air exchange, normal shape and expansion, no retractions, chest symmetrical, no accessory muscle use, normal resonance,normal vocal and tactile fremitus. G ASTROINTESTINAL: b owel sounds: normal, no hepatosplenomegaly, no masses palpated, normal active bowel sounds, no splenomegaly. s n ormal, no rash, normal turgor. E XTREMITIES: n o clubbing, no edema. M USCULOSKELETAL: n o swelling or deformity . ? P ulmonary Medical Decision Making: CXR: d irect visualization and individual interpretation performed . C hest CT: d irect visualization and individual interpretation performed. P FTs: d irect visualization and individual interpretation performed . Assessment: * Assessment: 1. C OPD - J44.9 (Primary) 2 . A TELECTASIS - J98.11 3 .?Occupational exposure to dust - Z57.2 4 . S leep apnea, unspecified - G47.30? 5. U nspecified malignant neoplasm of skin, unspecified - C44.90 6. O besity, unspecified - E66.9 Plan: * Treatment: Notes: This is a 54 year old white male, who has no history of tobacco abuse and significant occupational exposure. He presents with above CT findings & dyspnea . His PFT's on 12/04 reveal anFEV1 66%, FVC 79 %, FEV1/FVC 67 , TLC 86%, DLCO 85. HisCT Chest on 08/03 reveals tubular structure RLL, RML partial collapse.The patient has RML atelectasis bronchoscopy/ path/ cytology reports are requested. 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 He has minimalReflux precautions were discussed and a handout was given to patient.He has comorbid conditions. He is not up to date on his flu vaccine. Given the atelectasis a CT chest needs to repeated. Thank you for asking me to see this patient in consultation. History obtained by Ashley Pat APRN. Pt seen and this note reviewed and edited by Dr. Asya Carbone. ?? * Procedure Codes: 9 4760 Pulse Oximetry * Preventive Medicine: Counseling: C are goal follow up plan: B AL management provided Y es, A paola Normal BMI Follow-up G iving encouragement to exercise. Nutrition Counseling: W eight management r egular exercises, healthy diet. * Follow Up: [address] chest * Images: * Electronic signature of HUI CARBONE MD on 01/28/2025 at 01:05 PM EST Sign off status: Pending * Provider: Ghazal Carbone MD Date: 0 11/25/2024 Generated for Hanny sow/Liseth/eTransmitting on: 1 03/30/2024 01:05 PM EST History and Physical Notes * HPI (History of Present Illness) Category Sub-Category Detail Notes Category Not es Pulmonology Pulmonology Date of Last Spirometry:: 11/25/2024 Dear Laure Jernigan APRN, Thank you for sending this patient for pulmonary consultation services. As you will recall, this is a 54 year old white male. He is a nonmoker. He presents today with chronic dyspnea. As a baseline, the patient states that he has chronic dyspnea. This is ongoing for > 1 year.The patient states that he has minimal dry cough. He admits to frequent wheezing. He denies any hemoptysis. He has chronic pleuritic pain and follows cardiology in [place] at [facility]. He denies MDI's or nebs. He denies any home O2. He reports sleep apnea but had no coverage for CPAP. He denies any fever or chills. He denies any chronic low grade fever or night sweats, but he complains of general malaise. He is on Mounjaro for a year with decreased appetite and weight loss of 50 pounds He can ambulate approximately 50 feet on level ground and 10 feet uphill before having to stop due to dyspnea. He denies any asthma as a child, or frequent respiratory infections or hospitalizations as a child. He has no history of previous intubation. He has pedal edema; is on Lasix daily. He reports he had a black lung exam in 08/03 and was told he had a blockage . He had a bronchoscopy 09/03 at [facility] and was told a partial blockage has been there so long the other lung has made up for it . He is on Lisinopril for many years. He is on Suboxone daily. He has history of Melanoma left arm in 1999. He reports the area was excised and denies chemotherapy or radiation. FluVax: PneumoVax:denies COVID-Vax: total x1 RSVvax: denies Bronchoscopy 09/03 at [facility] - partial blockage RML, TBB, TBNA, Lavage brushing (-) for malignancy PFT: 12/04: FEV1 66%, FVC 79 %, FEV1/FVC 67 , TLC 86%, DLCO 85% CXR: CT Chest:08/03: tubular structure RLL, RML partial collapse sleep study: 03/04: JAYSHREE 6.5 mild LILIBETH FEV1=: 66 FEV1/FVC=: 67 Examination Category Sub-Category Detail Notes Category Not es General Examination HEENT: unremarkable , nasal mucosa, turbinates NECK/THYROID: no lymphadenopathy, supple, no thyromegaly, no thyroid abnormality, no accessory muscle use, no pallor, no icterus CARDIOVASCULAR: regular rate and rhy thm, normal S1S2, no murmurs, no gallops or rubs, normal S1S2 RESPIRATORY: clear to auscultatio n and percussion, good air exchange, normal shape and expansion, no retractions, chest symmetrical, no accessory muscle use, normal resonance, normal vocal and tactile fremitus GASTROINTESTINAL: bowel sounds: normal , no hepatosplenomegaly, no masses palpated, normal active bowel sounds, no splenomegaly EXTREMITIES: no clubbing, no pardeep a general appearence alert and oriented, in no acute distress, pleasant s normal, no rash, nor mal turgor / normal, normal denti tion CHEST: symmetrical, AP diam eter normal MUSCULOSKELETAL: no swelling or defor mity FACE: non-plethoric, acyan otic, no nasal flaring EYES: conjunctiva clear Pulmonary Medical Decision Making CXR: direct visualization and individual interpretation performed Chest CT: direct visualization and individual interpretation performed PFTs: direct visualization and individual interpretation performed
--- OUTSIDE RECORDS SUMMARY | 2024-12-30 11:30 | XMS_ITS ---
Author Organization CHAYO CARBONE MD Address [address] [place] [address] Care Team Providers Care Administrative Resident Name Role Phone ROMIE JERNIGAN APRN Primary Care Provider CHAYO Black [phone] REASON FOR VISIT 2ND VISIT F/U CT Encounters Encounter Location Date Provider Diagnosis CHAYO CARBONE MD [address] [place] [address] 12/30/2024 CHAYO CARBONE Plan Of Treatment Next Appt Details Provider Name:CHAYO Stevens, 02/10/2025 03:00:00 PM, [address], [address], [place], [address], Progress Notes * ALLAN RODRIGUEZINDOB:1969 (54 yo M)Acc No.[id number]:12/30/2024 Progress Notes Patient: COLIN MILES Provider: Ghazal Carbone MD :1970 A ge:54 Y S ex:Male Date:12/30/2024 Address:[address] [facility] Pcp:ROMIE JERNIGAN APRN Subjective: * Chief Complaints: * 1 . 2ND VISIT F/U CT. * Medical History: Objective: * Vitals: Assessment: Plan: * Treatment: * Images: * Electronic signature of HUI CARBONE MD on 01/28/2025 at 01:06 PM EST Sign off status: Pending * Provider: Ghazal Carbone MD Date: 1 Generated for Hanny sow/Liseth/Chandni on: 03/30/2024 01:06 PM EST
--- OUTSIDE RECORDS SUMMARY | 2025-01-07 10:30 | XMS_ITS ---
Author Organization [facility] Address [address] [place] [address] Care Team Providers Care Green Building Materials Distributor Name Role Phone RERE June Primary Care Provider CHAYO Black Unavailable [phone] Allergies No Known Allergies REASON FOR VISIT 2ND VISIT F/U CT Medications Medication SIG (Take, Route, Frequency, Duration) Notes Start Date End Date Status Sildenafil Citrate 50 MG TAKE 1 TABLET B Y MOUTH 1 HOUR BEFORE SEXUAL ACTIVITY DO NOT TAKE MORE THAN 1 IN 24 HOURS Oral; Duration: 30 Days Active PARoxetine HCl 20 MG TAKE 1 TABLET BY MO UTH ONCE DAILY Oral; Duration: 90 Days Active Ibuprofen 800 MG TAKE 1 TABLET BY COLLEEN TH TWICE DAILY NEEDED WITH FOOD FOR PAIN Oral; Duration: 30 Days Active Mounjaro 15 MG/0.5ML INJECT 1 PEN SUBCUTANEOUSLY ONCE A WEEK Subcutaneous; Duration: 84 Days Active Lisinopril 20 MG 1 tablet Oral; Duration: 90 days Active Spiriva Respimat 2.5 MCG/ACT 2 puffs Inh alation Once a day; Duration: 30 days Active Stiolto Respimat 2.5-2.5 MCG/ACT 2 puffs Inhalation Once a day; Duration: 30 days 01/07/2025 03/07/2025 Active Furosemide 20 MG 1 tablet Orally Once a day Active Buprenorphine HCl-Naloxone HCl 8-2 MG 2 TABLETS UNDER THE TONGUE AND ALLOW TO DISSOLVE SUBLINGUAL ONCE A DAY Sublingual; Duration: 28 Days Active hydroCHLOROthiazide 25 MG TAKE 1 TABLET BY MOUTH EVERY MORNING Oral; Duration: 90 Days Active Vital Signs Temperature 97.5 degrees Fahrenheit 10/29/20 25 Blood pressure systolic 139 mm Hg 01/08/20 25 Blood pressure diastolic 74 mm Hg 025 Height 76 in 01/07/2025 Weight 294.8 lbs 01/07/2025 BMI 35.88 kg/m2 01/07/2025 Oximetry 95 01/07/2025 Encounters Encounter Location Date Provider Diagnosis CHAYO CARBONE MD [address] [place] [address] 01/07/2025 CHAYO CARBONE COPD J44.9 ; ATELECTASIS J98.11 ; Occupational exposure to dust Z57.2 ; LUNG MASS R91.8 ; Sleep apnea, unspecified G47.30 ; Unspecified malignant neoplasm of skin, unspecified C44.90 and Obesity, unspecified E66.9 Assessments Encounter Date Diagnosis (ICD Code) Assessment Notes Treatment Notes Treatment Clinical Notes Section Notes 01/07/2025 COPD (ICD-10 - J44.9) This is a 54 year old white male, no history of tobacco abuse and above significant occupational exposure. He has unchanged CT findings & dyspnea . Has an FEV1 66%, FVC 79 %, FEV1/FVC 67, TLC 86%, DLCO 85. He has chronic symptoms due to a combination of CT abnormalities, COPD, & increased BMI. 01/07/2025 ATELECTASIS (ICD-10 - J98.11) His CT Chest on 08/03 reveals tubular structure RLL, RML partial collapse. He has RML atelectasis bronchoscopy/ path/ cytology reports are requested. 01/07/2025 Occupational exposure to dust (ICD-10 - Z57.2) Has long h/o exposure 01/07/2025 LUNG MASS (ICD-10 - R91.8) CT Chest: 01/03 RML collapse, tubular mass like density RLL 32 x 11mm . NEEDS PET SCAN given the size 01/07/2025 Sleep apnea, unspecified (ICD-10 - G47.30) Was advised states he has no coverage for CPAP 01/07/2025 Unspecified malignant neoplasm of skin, unspecified (ICD-10 - C44.90) 01/07/2025 Obesity, unspecified (ICD-10 - E66.9) Weight loss was advised, he has lost 50 lbs on Monjuaro. He has gained few lbs 01/07/2025 Other Plan Of Treatment Medication Medication Name Sig Start Date Stop Date Notes Spiriva Respimat 2.5 MCG/ACT 2 puffs Inh alation Once a day; Duration: 30 days Stiolto Respimat 2.5-2.5 MCG/ACT 2 puffs Inhalation Once a day; Duration: 30 days 01/07/2025 03/07/2025 Treatment Notes Assessment Notes COPD This is a 54 year ol d white male, no history of tobacco abuse and above significant occupational exposure. He has unchanged CT findings & dyspnea . Has an FEV1 66%, FVC 79 %, FEV1/FVC 67, TLC 86%, DLCO 85. He has chronic symptoms due to a combination of CT abnormalities, COPD, & increased BMI. ATELECTASIS His CT Chest on 08/03 reveals tubular structure RLL, RML partial collapse. He has RML atelectasis bronchoscopy/ path/ cytology reports are requested. Occupational exposure to dust Has long h /o exposure LUNG MASS CT Chest: 01/03 RML collapse, tubular mass like density RLL 32 x 11mm . NEEDS PET SCAN given the size Sleep apnea, unspecified Was advised sta skye he has no coverage for CPAP Obesity, unspecified Weight loss was adv ised, he has lost 50 lbs on Monjuaro. He has gained few lbs Pending Test Test Name Order Date NM PET/CT Skull Base to Mid Thigh (Init) 01/07/2025 Next Appt Details Follow Up: 4 Weeks e PET sca n & CD With CT from [place], Reason: Provider Name:CHAYO Stevens, 02/10/2025 03:00:00 PM, [address], [address], [place], [address], Progress Notes * ALLAN RODRIGUEZINDOB:1969 (54 yo M)Acc No.[id number]:01/07/2025 Progress Notes Patient: COLIN MILES Provider: Ghazal Carbone MD :1970 A ge:54 Y S ex:Male Date:01/07/2025 Address:[address] [place] [address], [place] [id number] Pcp:ROMIE JERNIGAN APRN Subjective: * Chief Complaints: * 1 . 2ND VISIT F/U CT. * HPI: P ulmonology: Pulmonology D ate of Last Spirometry: 0 11/25/2024, F EV1= 6 6, F EV1/FVC= 6 7. This is a 54 year old white male with atelectasis. He is a nonmoker. 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 He has chronic dyspnea for 1 year. He still has minimal dry cough. He admits to continued wheezing. He denies any hemoptysis. He has minimal chest pain (saw cardiology in [place]) He uses Spiriva M DI's no nebs. He denies any home O2, but has s leep apnea (no coverage for CPAP). He denies any fever or chills. He is on Mounjaro for a year with decreased appetite and weight loss of 50 pounds, gained 7 lbs back. H e can ambulate approximately 50 feet on level ground. He has pedal edema; is on Lasix daily. He reports he had a black lung exam in 08/03 and was told he had a blockage . He had a bronchoscopy 09/03 at [facility] and was told a partial blockage has been there so long the other lung has made up for it . He has history of Melanoma left arm in 1999. The area was excised no chemotherapy or radiation. FluVax: 2023fall P neumoVax:denies C OVID-Vax: total x1? RSVvax: denies Bronchoscopy 09/03 at [facility] - partial blockage RML, TBB, TBNA, Lavage brushing (-) for malignancy PFT: 12/04: FEV1 66%, FVC 79 %, FEV1/FVC 67 , TLC 86%, DLCO 85% CXR: CT Chest: 01/03 RML collapse, tubular mass like density RLL 32 x 11mm unchanged from 08/02 08/03: tubular structure RLL, RML partial collapse sleep [...] Surgical History: L eft ACL Repair , [place] Teeth Extraction . 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 * Medications: [...] TABLET BY MOUTH EVERY MORNING Oral , Taking Spiriva Respimat 2.5 MCG/ACT Aerosol Solution 2 puffs Inhalation Once a day , stop date 01/23/2025, Medication List reviewed and reconciled with the patient * Allergies: N .K.D.A. Objective: * Vitals: W t: 294.8, Ht: 76, Temp:97.5, HR:86, RESP:18, BP:139/74, Oxygen sat %:95, BMI:35.88. * Examination: G eneral Examination: general appearence a lert and oriented, Build: obese. F SERENA: n on-plethoric, acyanotic, no nasal [...] ESPIRATORY: c lear to auscultation and percussion, fair air exchange, normal shape and expansion, no retractions, chest symmetrical, no accessory muscle use, normal resonance,normal vocal and tactile fremitus. G ASTROINTESTINAL: b owel sounds: normal, no hepatosplenomegaly, no masses palpated, normal active bowel sounds, no splenomegaly. s n ormal, no rash, normal turgor. E XTREMITIES: n o clubbing, no edema. M USCULOSKELETAL: n o swelling or deformity, morbid obesity.? P ulmonary Medical Decision Making: CXR: d irect visualization and individual interpretation performed . C hest CT: d irect visualization and individual interpretation performed. P FTs: d irect visualization and individual interpretation performed . Assessment: * Assessment: 1. C OPD - J44.9 (Primary) 2 . A TELECTASIS - J98.11 3 .?Occupational exposure to dust - Z57.2 4 . L JOHANA MASS - R91.8 5 . S leep apnea, unspecified - G47.30 6 . U nspecified malignant neoplasm of skin, unspecified - C44.90 7 . O besity, unspecified - E66.9 Plan: * Treatment: 2. A TELECTASIS Notes:HisCT Chest on 08/03 reveals tubular structure RLL, RML partial collapse. Hehas RML atelectasis bronchoscopy/ path/ cytology reports are requested. 3. O ccupational exposure to dust Notes: Has long h/o exposure 4. L JHOANA MASS I maging: NM PET/CT Skull Base to Mid Thigh (Init) Notes:CT Chest: 01/03 RML collapse, tubular mass like density RLL 32 x 11mm . NEEDS PET SCAN given the size??5.?Sleep apnea, unspecified? Notes: Was advised states he has no coverage for CPAP ??6.?Obesity, unspecified? Notes: Weight loss was advised, he has lost 50 lbs on Monjuaro. He has gained few lbs ?? * Procedure Codes: 9 4760 Pulse Oximetry * Follow Up: 4 Weeks e PET scan & CD With CT from [place] * Images: * Electronic signature of HUI CARBONE MD on 01/28/2025 at 01:06 PM EST Sign off status: Pending * Provider: Ghazal Carbone MD Date: Generated for Jocelynni magi/Liseth/eTransmitting on: 03/30/2024 01:06 PM EST History and Physical Notes * HPI (History of Present Illness) Category Sub-Category Detail Notes Category Not es Pulmonology Pulmonology Date of Last Spirometry:: 11/25/2024 This is a 54 year old white male with atelectasis. He is a nonmoker. 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 He has chronic dyspnea for 1 year. He still has minimal dry cough. He admits to continued wheezing. He denies any hemoptysis. He has minimal chest pain (saw cardiology in [place]) He uses Spiriva MDI's no nebs. He denies any home O2, but has sleep apnea (no coverage for CPAP). He denies any fever or chills. He is on Mounjaro for a year with decreased appetite and weight loss of 50 pounds, gained 7 lbs back. He can ambulate approximately 50 feet on level ground. He has pedal edema; is on Lasix daily. He reports he had a black lung exam in 08/03 and was told he had a blockage . He had a bronchoscopy 09/03 at [facility] and was told a partial blockage has been there so long the other lung has made up for it . He has history of Melanoma left arm in 1999. The area was excised no chemotherapy or radiation. FluVax: 2023fall PneumoVax:denies COVID-Vax: total x1 RSVvax: denies Bronchoscopy 09/03 at [facility] - partial blockage RML, TBB, TBNA, Lavage brushing (-) for malignancy PFT: 12/04: FEV1 66%, FVC 79 %, FEV1/FVC 67 , TLC 86%, DLCO 85% CXR: CT Chest: 01/03 RML collapse, tubular mass like density RLL 32 x 11mm unchanged from 08/02 08/03: tubular structure RLL, RML partial collapse sleep [...] RESPIRATORY: clear to auscultatio n and percussion, fair air exchange, normal shape and expansion, no retractions, chest symmetrical, no accessory muscle use, normal resonance, normal vocal and tactile fremitus GASTROINTESTINAL: bowel sounds: normal , no hepatosplenomegaly, no masses palpated, normal active bowel sounds, no splenomegaly EXTREMITIES: no clubbing, no pardeep a general appearence alert and oriented, Build: obese s normal, no rash, nor mal turgor / normal, normal denti tion CHEST: symmetrical, AP diam eter normal MUSCULOSKELETAL: no swelling or defor mity, morbid obesity FACE: non-plethoric, acyan otic, no nasal flaring EYES: conjunctiva clear Pulmonary Medical Decision Making CXR: direct visualization and individual interpretation performed Chest CT: direct visualization and individual interpretation performed PFTs: direct visualization and individual interpretation performed
--- OUTSIDE RECORDS SUMMARY | 2025-01-22 06:30 | XMS_ITS | Continuity of Care Document ---
Author Organization [facility] Address [address] [place] [address] Phone Care Team Providers Care Emanations Analysis Technician Name Role Phone Martin Montoya Unavailable Unavailable Advance Directives Directive Yes / No Effective Date File Name No Information Encounters Encounter Description Practice Location Reason(s) For Visit Diagnoses Date Provider [facility], [address] [place], [address], [place] tel:[phone] [address] [place] No Information 2024 Rachel Salazar. . Family History Family Member Type Diagnosis Age At Onset No Information Payers Payer name Insurance type Covered republican ID Authoriza tion(s) No Information Social History Type Description Quantity Date Captured Comments Sex Male Smoking Status No Information Sexual Orientation Don't Know Gender Identity Male Chief Complaint And Reason For Visit No Information History Of Present Illness Encounter Date Complaint History Of Prese nt Illness No Information Instructions Date Instruction Additional Infor mation No Information Assessments Type Assessment Date No Information
--- OUTSIDE RECORDS SUMMARY | 2025-01-22 06:30 | XMS_ITS | Continuity of Care Document ---
Author Organization [facility] Address [address] [place] [address] Phone Care Team Providers Care Stress Engineer Name Role Phone Martin Montoya Unavailable Unavailable Advance Directives Directive Yes / No Effective Date File Name No Information Encounters Encounter Description Practice Location Reason(s) For Visit Diagnoses Date Provider [facility], [address] [place], [address], [place] tel:[phone] [address] [place] No Information 2024 Rachel Salazar. . Family History Family Member Type Diagnosis Age At Onset No Information Payers Payer name Insurance type Covered libertarian ID Authoriza tion(s) No Information Social History [...]
--- OUTSIDE RECORDS SUMMARY | 2025-01-22 06:30 | XMS_ITS | Continuity of Care Document ---
Author Organization [facility] Address [address] [place] [address] Phone Care Team Providers Care Motorboat Mechanic Helper Name Role Phone Martin Montoya Unavailable Unavailable Advance Directives Directive Yes / No Effective Date File Name No Information Encounters Encounter Description Practice Location Reason(s) For Visit Diagnoses Date Provider [facility], [address] [place], [address], [place] tel:[phone] [address] [place] No Information 2024 Rachel Salazar. . Family History Family Member Type Diagnosis Age At Onset No Information Payers Payer name Insurance type Covered constitution party ID Authoriza tion(s) No Information Social History [...]
[2025-01-28 12:44] LABS: Hematocrit 38.2 % (42.0-52.0); Hemoglobin 13.0 g/dL (14.1-18.0); Immature Granulocytes % 0.3 %; Mean Corpuscular HGB Conc 34.0 g/dL (31.8-35.4); Mean Corpuscular Hemoglobin 29.3 pg (27.0-31.2); Mean Corpuscular Volume 86.2 fl (80-94); Nucleated Red Blood Cells % 0 %; Platelet Count 204 K/mm3 (142-424); Red Blood Count 4.43 M/mm3 (4.60-6.20); Red Cell Distribution Width-SD 40.6 fL; White Blood Count 9.0 K/mm3 (4.8-10.8)
--- OUTSIDE RECORDS SUMMARY | 2025-01-28 13:06 | XMS_ITS | Clinical Summary ---
Author Organization [facility] Address [address] [place] [address] Care Team Providers Care Hunting And Fishing Guide Name Role Phone Rosales, June Primary Care Provider Allergies No known active allergies Medications aspirin 81 MG EC tablet Take 1 tablet by mouth Daily With Breakfast. 02/28/2024 Active Blood Glucose Monitoring Suppl (Accu-Chek Guide Ok) w/Device kit TEST BLOOD SUGAR DAILY DIRECTED [...] - 29.0 mg/g 03/11/2024 12:05 AM EST [facility] Creatinine, Urine 354.3 mg/dL 03/11/2024 12:05 AM EST [facility] Microalbumin, Urine 3.9 mg/dL 03/11/2024 12:05 AM EST [facility] Urine Urine specimen obtained by clean catch procedure / Unknown Collection / Unknown 03/10/2024 3:03 PM EST 03/10/2024 3:03 PM EST Luiz Ferguson MD URINE ORDERABLES Final Result [facility]
[address] [place] [address], * Lipid Panel (03/10/2024 3:03 PM EST) Total Cholesterol 161 0 - 200 mg/dL 03/10/2024 11:35 PM EST [facility] Triglycerides 74 0 - 150 mg/dL 03/10/2024 11:35 PM EST [facility] HDL Cholesterol 50 40 - 60 mg/dL 03/10/2024 11:35 PM EST [facility] LDL Cholesterol 97 0 - 100 mg/dL 03/10/2024 11:35 PM EST [facility] VLDL Cholesterol 14 5 - 40 mg/dL 03/10/2024 11:35 PM EST [facility] LDL/HDL Ratio 1.92 03/10/2024 11:35 PM EST [facility] Blood Venipuncture / Unknown 03/10/2024 3:03 PM EST 03/10/2024 3:03 PM EST Narrative [facility] - 03/10/2024 11:35 PM EST [...] MD LAB BLOOD ORDERABLES Final Res ult [facility]
[address] [place] [address], [place] [phone] from Last 3 Months or Most Recently Relevant to Health Maintenance Insurance [facility] PPO Advance Directives * CPR (Attempt to Resuscitate) (Latest Code Status on File) Date Activated Date Inactivated Comments 03/28/2024 12:46 PM 03/28/2024 6:30 PM Question Answer Comments Code Status (Patient has no pulse and is not breathing): CPR (Attempt to Resuscitate) Medical Interventions (Patie nt has pulse or is breathing): Full Support Care Teams Hunting And Fishing Guide Relationship Specialty Start Date End Date June, [address] [place] [id number] PCP - General Nurse Practitioner 02/27/24
--- OUTSIDE RECORDS SUMMARY | 2025-01-28 13:06 | XMS_ITS | Patient Health Record ---
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 Name Role Phone Flora Fonseca Primary Care Provider Reason For Referral No Information Medications Medication SIG (Take, Route, Frequency, Duration) Notes Start Date End Date Status Suboxone 8-2 MG 1 application under the tongue and allow to dissolve Sublingual Once a day Active hydroCHLOROthiazide 12.5 MG 1 tablet Ora lly Once a day; Duration: 30 day(s) 07/16/2012 Active Lisinopril 20 MG 1 tablet Orally Once a day; Duration: 30 day(s) Active Zithromax Z-Semaj 250 MG 2 tablet on the irst day, then 1 tablet daily for 4 days Orally Once a day; Duration: 5 day(s) 02/28/2012 Active Social History Tobacco Use: Social History Observation Description Date Details (start date - stop date) Never Smoker NA - NA Tobacco Use/Smoking Question Answer Notes Are you a nonsmoker Alcohol Screen Question Answer Notes Did you have a drink containing alcohol in the p ast year? No Points 0 Interpretation Negative Problems Problem Type SNOMED Code ICD Code Onset Dates Problem Status W/U Status Risk Notes Problem Essential hypertension (84508548) Unspecified essential hypertension (401.9) Active confirmed Plan Of Treatment No Information Insurance Providers Payer Name Payer Address Payer Phone Subscriber Number Group Number Insured Name Patient Relationship to Insured Coverage Start Date Coverage End Date SELF PAY Gama Galvin Self - patient is the insured Medical (General) History Medical History History ICD Code HTN
--- OUTSIDE RECORDS SUMMARY | 2025-01-28 13:07 | XMS_ITS | Patient Health Record ---
Author Organization [facility] Address [address] [place] [address] Care Team Providers Care Watch Dial Printer Name Role Phone RERE June Primary Care Provider CHAYO Black Unavailable [phone] Allergies No Known Allergies Reason For Referral No Information Medications Medication SIG (Take, Route, Frequency, Duration) Notes Start Date End Date Status Spiriva Respimat 2.5 MCG/ACT 2 puffs Inh alation Once a day; Duration: 30 days Active Sildenafil Citrate 50 MG TAKE 1 TABLET B Y MOUTH 1 HOUR BEFORE SEXUAL ACTIVITY DO NOT TAKE MORE THAN 1 IN 24 HOURS Oral; Duration: 30 Days Active PARoxetine HCl 20 MG TAKE 1 TABLET BY MO [facility] ONCE DAILY Oral; Duration: 90 Days Active Stiolto Respimat 2.5-2.5 MCG/ACT 2 puffs Inhalation Once a day; Duration: 30 days 01/07/2025 03/07/2025 Active Ibuprofen 800 MG TAKE 1 TABLET BY COLLEEN TWICE DAILY NEEDED WITH FOOD FOR PAIN Oral; Duration: 30 Days Active Furosemide 20 MG 1 tablet Orally Once a day Active Mounjaro 15 MG/0.5ML INJECT 1 PEN SUBCUTANEOUSLY ONCE A WEEK Subcutaneous; Duration: 84 Days Active Buprenorphine HCl-Naloxone HCl 8-2 MG 2 TABLETS UNDER THE TONGUE AND ALLOW TO DISSOLVE SUBLINGUAL ONCE A DAY Sublingual; Duration: 28 Days Active hydroCHLOROthiazide 25 MG TAKE 1 TABLET BY MOUTH EVERY MORNING Oral; Duration: 90 Days Active Lisinopril 20 MG 1 tablet Oral; Duration: 90 days Active Problems Problem Type SNOMED Code ICD Code Onset Dates Problem Status W/U Status Risk Notes Problem COPD - Chronic obstructive pulmonary disease (71074828) COPD (J44.9) Active confirmed Vital Signs Temperature 97.5 degrees Fahrenheit 01/07/2025 Oximetry 95 01/07/2025 Blood pressure diastolic 74 mm Hg 01/07/2025 Height 76 in 01/07/2025 Blood pressure systolic 139 mm Hg 01/07/2025 Weight 294.8 lbs 01/07/2025 BMI 35.88 kg/m2 01/07/2025 Encounters Encounter Location Date Provider Diagnosis [facility] [address] [place] [address] 01/07/2025 [facility] COPD J44.9 ; ATELECTASIS J98.11 ; Occupational exposure to dust Z57.2 ; LUNG MASS R91.8 ; Sleep apnea, unspecified G47.30 ; Unspecified malignant neoplasm of skin, unspecified C44.90 and Obesity, unspecified E66.9 [facility] MD [address] [facility] [address] [place] [address] 11/25/2024 CHAYO CARBONE COPD J44.9 ; ATELECTASIS J98.11 ; Occupational exposure to dust Z57.2 ; Sleep apnea, unspecified G47.30 ; Unspecified malignant neoplasm of skin, unspecified C44.90 and Obesity, unspecified E66.9 [facility]BONE MD [address] [facility] [address] [place] [address] 11/25/2024 CHAYO CARBONE MD [address] [place] [address] [address] [place] [address] 01/07/2025 [facility] CARB[facility] Assessments Encounter Date Diagnosis (ICD Code) Assessment [...] atelectasis bronchoscopy/ path/ cytology reports are requested. 11/25/2024 COPD (ICD-10 - J44.9) This is [...] this note reviewed and edited by Dr. Chayo [facility]bone. 11/25/2024 ATELECTASIS (ICD-10 - J98.11) 01/07/2025 Occupational exposure to dust (ICD-10 - Z57.2) Has long h/o exposure 11/25/2024 Occupational exposure to dust (ICD-10 - Z57.2) 01/07/2025 LUNG MASS (ICD-10 - R91.8) CT Chest: 01/03 RML collapse, tubular mass like density RLL 32 x 11mm . NEEDS PET SCAN given the size 11/25/2024 Sleep apnea, unspecified (ICD-10 - G47.30) 01/07/2025 Sleep apnea, unspecified (ICD-10 - G47.30) Was advised states he has no coverage for CPAP 11/25/2024 Unspecified malignant neoplasm of skin, unspecified (ICD-10 - C44.90) 01/07/2025 Unspecified malignant neoplasm of skin, unspecified (ICD-10 - C44.90) 11/25/2024 Obesity, unspecified (ICD-10 - E66.9) 01/07/2025 Obesity, unspecified (ICD-10 - E66.9) Weight loss was advised, he has lost 50 lbs on Monjuaro. He has gained few lbs 11/25/2024 Other 01/07/2025 Other Plan Of Treatment Pending Test Test Name Order Date CT chest without contrast 11/25/2024 NM PET/CT Skull Base to Mid Thigh (Init) 01/07/2025 Next Appt Details Provider Name:CHAYO Stevens, 02/10/2025 03:00:00 PM, [address] [place] [address], [place], [address], Insurance Providers Payer Name Payer Address Payer Phone Subscriber Number Group Number Insured Name Patient Relationship to Insured Coverage Start Date Coverage End Date [facility] [address] [place] [address] [id number] COLIN POZO Self - patient is the insured Medical (General) History Medical History History ICD Code Skin Cancer HTN Type 2 Diabetes Surgical History Surgery Date(Month/Year) [place] Teeth Extraction Left ACL Repair
[2025-01-28 13:15] LABS: Hemoglobin A1C 5.9 % (4.0-6.0)
[2025-01-28 13:45] LABS: Alanine Aminotransferase 31 U/L (12-78); Albumin Level 4.3 g/dl (3.5-5.0); Albumin/Globulin Ratio 1.5 (1.1-1.8); Alkaline Phosphatase 106 U/L (38-126); Anion Gap 8.9 mEq/L (5-15); Aspartate Amino Transferase 36 U/L (17-59); Bilirubin,Total 0.5 mg/dl (0.2-1.3); Blood Urea Nitrogen 22 mg/dl (9-20); Calcium 9.8 mg/dl (8.4-10.2); Carbon Dioxide 28 mmol/L (22.0-30.0); Chloride 97 mmol/L (98-107); Cholesterol 190 mg/dl (140-200); Creatinine,Serum 1.10 mg/dl (0.66-1.25); Estimated Glomerular Filt Rate 70 ml/min (>60); GFR (African American) 85 ML/MIN (>60); Globulin 2.8 g/dL (1.3-3.2); Glucose 86 mg/dl (74-100); HDL Cholesterol 54 mg/dl (40-60); Potassium 3.9 mmoL/L (3.5-5.1); Sodium 130 mmol/L (136-145); Total Protein,Serum 7.1 g/dl (6.3-8.2); Triglycerides 113 mg/dl (30-150)
== END 2025-01-28 23:59 | disposition home or self-care (01) ==
LOC: LAB 12:10
PROVIDERS: PCP Registered Nurse; Visit Provider Registered Nurse
DX: E78.5 Hyperlipidemia, unspecified (principal); E11.9 Type 2 diabetes mellitus without complications; I10 Essential (primary) hypertension
CPT/HCPCS: 36415; 80053; 80061; 83036; 85025

== ENCOUNTER 2025-02-02 11:25 | Outpatient (CLI) | payer BC, SELFPAY ==
--- OUTSIDE RECORDS SUMMARY | 2025-01-22 06:30 | XMS_ITS | Continuity of Care Document ---
Author Organization [facility] Address [address] [place] [address] Phone Care Team Providers Care Mold Maker Name Role Phone Martin Montoya Unavailable Unavailable Advance Directives Directive Yes / No Effective Date File Name No Information Encounters Encounter Description Practice Location Reason(s) For Visit Diagnoses Date Provider [facility], [address] [place], [address], [place] tel:[phone] [address] [place] No Information 2024 Rachel Salazar. . Family History Family Member Type Diagnosis Age At Onset No Information Payers Payer name Insurance type Covered democrat ID Authoriza tion(s) No Information Social History [...]
[2025-02-02 11:31] LABS: Microscopic, Urine URINE MICROSCOPIC (MICROSCOPIC)
--- OUTSIDE RECORDS SUMMARY | 2025-02-02 11:51 | XMS_ITS | Clinical Summary ---
Author Organization [facility] Address [address] [place] [address] Care Team Providers Care Provider Relations Advocate Name Role Phone Rosales, June Primary Care Provider [phone] Allergies No known active allergies Medications aspirin 81 MG EC tablet Take 1 tablet by mouth Daily With Breakfast. 02/28/2024 Active Blood Glucose Monitoring Suppl (Accu-Chek Guide Hi) w/Device kit TEST BLOOD SUGAR DAILY DIRECTED [...] - 29.0 mg/g 03/11/2024 12:05 AM EST [facility] Creatinine, Urine 354.3 mg/dL 03/11/2024 12:05 AM EST [facility] Microalbumin, Urine 3.9 mg/dL 03/11/2024 12:05 AM EST [facility] Urine Urine specimen obtained by clean catch procedure / Unknown Collection / Unknown 03/10/2024 3:03 PM EST 03/10/2024 3:03 PM EST Luiz Ferguson MD URINE ORDERABLES Final Result [facility]
[address] [place] [address], * Lipid Panel (03/10/2024 3:03 PM EST) Total Cholesterol 161 0 - 200 mg/dL 03/10/2024 11:35 PM EST [facility] Triglycerides 74 0 - 150 mg/dL 03/10/2024 11:35 PM EST [facility] HDL Cholesterol 50 40 - 60 mg/dL 03/10/2024 11:35 PM EST [facility] LDL Cholesterol 97 0 - 100 mg/dL 03/10/2024 11:35 PM EST [facility] VLDL Cholesterol 14 5 - 40 mg/dL 03/10/2024 11:35 PM EST [facility] LDL/HDL Ratio 1.92 03/10/2024 11:35 PM EST [facility] Blood Venipuncture / Unknown 03/10/2024 3:03 PM EST 03/10/2024 3:03 PM EST Narrative [facility] - 03/10/2024 11:35 PM EST [...] MD LAB BLOOD ORDERABLES Final Res ult [facility]
[address] [place] [address], [place] [phone] from Last 3 Months or Most Recently Relevant to Health Maintenance Insurance [facility] PPO Advance Directives * CPR (Attempt to Resuscitate) (Latest Code Status on File) Date Activated Date Inactivated Comments 03/28/2024 12:46 PM 03/28/2024 6:30 PM Question Answer Comments Code Status (Patient has no pulse and is not breathing): CPR (Attempt to Resuscitate) Medical Interventions (Patie nt has pulse or is breathing): Full Support Care Teams Provider Relations Advocate Relationship Specialty Start Date End Date June, [address] [place] [id number] PCP - General Nurse Practitioner 02/27/24
[2025-02-02 14:49] LABS: Bilirubin,Urine Negative (Negative); Color,Urine YELLOW (Yellow); Glucose,Urine (UA) Negative (Negative); Ketones,Urine Negative (Negative); Leukocyte Esterase,Urine Negative (Negative); PH,Urine 6.0 (5.0-8.5); Protein,Urine Negative (Negative); Specific Gravity, Urine 1.020 (1.005-1.030); Urobilinogen,Urine 0.2 EU/dl (0.2)
[2025-02-02 15:15] LABS: RBC,Urine Occasional #/hpf (0-3); WBC,Urine Occasional #/hpf (0-3)
[2025-02-02 15:16] LABS: Calcium Oxalate Crystals,Urine Trace /lpf; Mucus,Urine 2+ /lpf
== END 2025-02-02 23:59 | disposition home or self-care (01) ==
LOC: LAB 11:26
PROVIDERS: PCP Registered Nurse; Visit Provider Registered Nurse
DX: E78.5 Hyperlipidemia, unspecified (principal); I10 Essential (primary) hypertension; E11.9 Type 2 diabetes mellitus without complications
CPT/HCPCS: 81001; 82043